=== PATIENT | female | born 1975 | race American Indian/Alaskan Native ===

== ENCOUNTER 2021-01-23 07:15 | Outpatient (CLI) | payer BC | END 2021-01-23 07:16 | disposition home or self-care (01) | LOC: MAMMO 07:15 | PROVIDERS: ATTEND Obstetrics & Gynecology | DX: Z12.31 Encounter for screening mammogram for malignant neoplasm of breast (principal) | CPT/HCPCS: 77067 ==

== ENCOUNTER 2021-03-07 10:52 | Outpatient (CLI) | payer BC ==
--- NOTE | 2021-03-07 15:09 | Mammography Report ---
RIGHT DIGITAL DIAGNOSTIC MAMMOGRAM WITH CAD CONVENTIONAL, 03/07/2021 RIGHT LIMITED BREAST ULTRASOUND CLINICAL INFORMATION / INDICATION: Abnormal screening mammogram TECHNIQUE: Digital right mammographic imaging was performed. Spot compression views were obtained. Li mited ultrasound was performed. This examination was interpreted with the benefit of Computer-Aided D etection (CAD) analysis. COMPARISON: Screening mammography 01/23/2021, 07/06/2018, bilateral breast ultrasound 06/14/2015 FINDINGS: Breast Density: The breasts are heterogeneously dense, which may obscure small masses. MAMMOGRAPHIC FINDINGS: The density of interest on recent screening mammogram improves with spot compr ession views without a discrete lesion seen. ULTRASOUND FINDINGS: Targeted ultrasound evaluation was performed of the area of interest. Examinatio n of the general area of interest was performed. No large density is seen which would correspond to t he area of concern on screening mammogram recently. 3. Minimal probably benign lesions are noted. In the 8:00 position, 2 cm from the nipple, a 7 mm mini nydia complicated cyst is seen. In the 9:00 position, 2 cm from the nipple, a small benign-appearing wider than tall nodule is seen without shadowing or vascularity measuring under 7 mm. In the 10:00 po sition in the retroareolar region, a 5 mm complicated cyst is seen. IMPRESSION: Area of concern improves mammographically and no corresponding sonographic abnormality is noted. Only minimal probably benign lesions are seen sonographically. Follow up recommendation: Follow-up right breast ultrasound and right mammogram in 6 months BI-RADS Category 3: Probably Benign. Followup in 6 months. A "normal" or negative report should not discourage follow up or biopsy of a clinically significant f inding. A written summary of these findings will be mailed to the patient. The patient will be entered into a mammography reporting system which will generate a reminder letter for the patient's next appointmen t at the appropriate interval. According to the [employer], yearly mammograms are recommended starting at age 40 and continuing as long as a woman is in good health. Breast MRI is recommended for women with an bisi roximately 20-25% or greater lifetime risk of breast cancer, including women with a strong family his tory of breast or ovarian cancer and women who have been treated for Hodgkin's disease. Signer Name: Jose Thornton MD Signed: 03/07/2021 3:04 PM Workstation Name: [id number]
== END 2021-03-07 10:53 | disposition home or self-care (01) ==
LOC: MAMMO 10:52
PROVIDERS: ATTEND Obstetrics & Gynecology
DX: N60.01 Solitary cyst of right breast (principal)

== ENCOUNTER 2021-03-20 07:03 | Observation (INO) | payer BC ==
--- NOTE | 2021-03-14 09:55 | Anesthesia Consultation ---
Anesthesia Consult and Med Hx Date of service: 03/20/21 - Airway Anesthetic Teeth Evaluation: Good ROM Head & Neck: Adequate Mental/Hyoid Distance: Adequate Mallampati Class: Class II Intubation Access Assessment: Probably Good - Pulmonary Exam CTA: Yes - Pre-Operative Health Status ASA Pre-Surgery Classification: ASA1 Proposed Anesthetic Plan: General Nerve Block: TAP - Pulmonary Hx Smoking: No Hx Respiratory Symptoms: No - Cardiovascular System Hx Hypertension: No - Central Nervous System CVA: No - Endocrine Hx Renal Disease: No Hx Liver Disease: No Hx Insulin Dependent Diabetes: No Hx Non-Insulin Dependent Diabetes: No Hx Thyroid Disease: No - Other Systems Hx Obesity: No - Additional Comments Anesthesia Medical History Comments: No prior GA. No FHx anesthetic complications.
[2021-03-14 10:11] LABS: Basophils # (Auto) 0.1 K/mm3 (0.0-0.1); Basophils % (Auto) 0.9 % (0.0-1.8); Eosinophils # (Auto) 0.1 K/mm3 (0.0-0.4); Eosinophils % (Auto) 0.9 % (0.0-4.3); Hematocrit 27.7 % (30.3-42.9); Hemoglobin 8.5 gm/dl (10.1-14.3); Lymphocytes # (Auto) 1.3 K/mm3 (1.2-5.4); Lymphocytes % (Auto) 20.8 % (13.4-35.0); Mean Corpuscular HGB Conc 31 % (30-34); Mean Corpuscular Volume 73 fl (79-97); Monocytes # (Auto) 0.5 K/mm3 (0.0-0.8); Platelet Count 270 K/mm3 (140-440); Red Blood Count 3.82 M/mm3 (3.65-5.03)
[2021-03-14 10:31] LABS: Red Cell Distribution Width 23.7 % (13.2-15.2)
--- NOTE | 2021-03-19 18:50 | History and Physical Report ---
History of Present Illness Date of examination: 03/09/21 Date of admission: 03/20/2021 Chief complaint: Excessive and frequent menstruation with regular cycle and pelvic pain History of present illness: Pt presents with c/o increasing pelvic pain and heavier menses since 2017. States she has soiled clothing and heavy bleeding and pain make it difficult for her to perform her job duties. She complains of heavy bleeding. Bleeds heavy 7/7days since 2017. Past History : 3 Term Births: 3 Living Children: 3 Para: 3 # 1 Delivery date: 1996 Delivery type: # 2 Delivery type: # 3 Delivery type: COOKER SODA History Operations: positive Tubal Ligation Abnormal PAP: negative Infection History HIV Risk Eval: no Personal hx. of genital herpes: yes Hx of STD: HSV Active Medications (reviewed today): DICLOFENAC SODIUM 50 MG ORAL TABLET DELAYED RELEASE (DICLOFENAC SODIUM) 50 mg 3 times daily ZYRTEC ALLERGY TABLET (CETIRIZINE HCL TABS) FLONASE ALLERGY RELIEF 50 MCG/ACT NASAL SUSPENSION (FLUTICASONE PROPIONATE) Current Allergies (reviewed today): No known allergies Past Medical History: Reviewed history from 07/03/2018 and no changes required: Anemia Past Surgical History: Reviewed history from 01/17/2021 and no changes required: positive Tubal Ligation Family History Summary: Reviewed history Last on 05/17/2019 and no changes required:03/19/2021 Other Family Member - Has No Family History of Uterine Cancer - Entered On: 07/21/2018 Other Family Member - Has No Family History of Small Bowel Cancer - Entered On: 07/21/2018 Other Family Member - Has No Family History of Stomach Cancer - Entered On: 07/21/2018 Other Family Member - Has No Family History of Pancreatic Cancer - Entered On: 07/21/2018 Other Family Member - Has No Family History of Ovarvian Cancer - Entered On: 07/21/2018 Other Family Member - Has No Family History of Kidney/Urinary Tract Cancer - Entered On: 07/21/2018 Other Family Member - Has No Family History of Spontaneous DVT-PE - Entered On: 07/21/2018 Other Family Member - Has No Family History of Colon Cancer - Entered On: 07/21/2018 Other Family Member - Has No Family History of Brain Cancer - Entered On: 07/21/2018 Other Family Member - Has No Family History of Biliary Tract Cancer - Entered On: 07/21/2018 Aunt - Has Family History Breast Cancer - maternal - Entered On: 03/09/2021 Social History: Reviewed history from 07/03/2018 and no changes required: Patient is single Smoking History: Patient has never smoked. Risk Factors: Smoked Tobacco Use: Never smoker Drug use: no HIV high-risk behavior: no Alcohol use: yes Drinks per day: social Exercise: yes Seatbelt use: 100 % Mammogram History: Date of Last Mammogram: 03/07/2021 Results: Probably Benign Previous Tobacco Use: Signed On - 02/07/2021 Smoked Tobacco Use: Never smoker Smokeless Tobacco Use: Never Passive smoke exposure: no Drug use: no HIV high-risk behavior: no Caffeine use: <1 drinks per day Previous Alcohol Use: Signed On - 02/07/2021 Alcohol use: yes Type: occ Drinks per day: 1 Exercise: yes Times per week: 6 Type of Exercise: walking Seatbelt use: 100 % PAP Smear History: Date of Last PAP Smear: 01/17/2021 NILM +HPV Mammogram History: Date of Last Mammogram: 03/07/2021 Results: Probably Benign, needs repeat in 6months Physical Exam Appearance: well developed, well nourished, no acute distress Other Exams Lungs: no rales, rhonchi, or wheezes Heart: S1, S2, no murmur, rub, or gallop Genitourinary Exam Uterus: deferred for EUA Impression & Recommendations: Problem # 1: Excessive and frequent menstruation with regular cycle (ICD-626.2) ([id number]) Diagnosis explained to patient . Discussed with patient various medical, surgical and radiological therapies common for treatment including, but not limited to, hysterectomy and ablation. Discussed risks and benefits of laparotomy, laparoscopy, vaginal and robotic assisted approaches for hysterectomies. Patient desires definitive treatment in the form of robot assisted laparoscopic total hysterectomy. The risks and alternatives for this surgery were reviewed with the patient. She was informed of the risks of the surgery including, but not limited to, pain, infection, bleeding possibly heavy enough to require a blood transfusion with associated risks of infections (hepatitis and HIV) and transfusion reactions, possible damage to bowel, bladder or ureter(s) and surrounding organs. . Patient understands that this surgery will make her sterile. Indications to abort a robotic/laparoscopic procedure and perform an open procedure were explained. Patient understands if her ovaries are removed she will become menopausal. She desires ovarian conservation. She was informed she may require surgery later to have her ovaries removed for a benign or malignant condition. Patient advised the small risks of spreading of malignancy if morcellation is required during the surgery patient understands and approves performing if necessary. Questions answered. Consent reviewed and signed The patient was instructed/informed the following: The normal length of hospital stay for this procedure. Nothing to eat or drink after midnight the evening prior to surgery.. Pre-op instruction sheets given. Wound care instructions given. Problem # 2: Pelvic and perineal pain (ICD-789.00) ([id number]) It was extensively explained to her that her pain may persist, recur or change in nature due to the difficulty with determining the exact etiology(ies) of chronic pelvic pain or development of adhesions. She declined other treatment options at this time. Medications and Allergies Allergies Allergy/AdvReac Type Severity Reaction Status Date / Time No Known Allergies Allergy Unverified 03/13/21 17:04 Home Medications Medication Instructions Recorded Confirmed Last Taken Type Cetirizine HCl [ZyrTEC 10mg cap] 10 mg PO DAILY 03/13/21 03/13/21 Unknown Hist ory Diclofenac Sodium 50 mg PO BID PRN 03/13/21 03/13/21 Unknown History Fluticasone [Flonase] 2 spray NS QDAY 03/13/21 03/13/21 Unknown History Active Meds: Active Medications Acetaminophen (Acetaminophen 500 Mg Tab) 1,000 mg PO PREOP NITESH Stop: 03/20/21 20:00 Celecoxib (Celecoxib 200 Mg Cap) 200 mg PO PREOP NR Stop: 03/20/21 20:00 Fentanyl (Fentanyl 100 Mcg/2 Ml Inj) 100 mcg IV ONCE PRN PRN Reason: sedation for nerve block Stop: 03/20/21 20:00 Gabapentin (Gabapentin 300 Mg Cap) 300 mg PO PREOP NR Stop: 03/20/21 20:00 Lactated Ringer's (Lactated Ringers) 1,000 mls @ 100 mls/hr IV DIRECT NITESH Stop: 03/20/21 23:59 Cefazolin Sodium (Ancef/Sterile Water 2 Gm/20 Ml) 2 gm in 20 mls @ 80 mls/hr IV PREOP NR; Protocol Midazolam HCl (Midazolam 2 Mg/2 Ml Inj) 2 mg IV PREOP NR Stop: 03/20/21 20:00 Scopolamine (Scopolamine Transdermal Patch 72 Hr) 1 each TD PREOP NR Stop: 03/20/21 23:00 Exam Vital Signs Temp Pulse Resp BP Pulse Ox 98.3 F 71 18 125/72 100 03/14/21 09:25 03/14/21 09:25 03/14/21 09:25 03/14/21 09:25 03/14/21 09:25 Results - Labs 03/14/21 09:30 Assessment and Plan - Patient Problems (1) Excessive and frequent menstruation with regular cycle Status: Chronic (2) Pelvic and perineal pain Status: Chronic (3) Anemia Status: Chronic Qualifiers: Iron deficiency anemia type: chronic blood loss
[~2021-03-20 07:03] MED LIST: ACETAMINOPHEN 500 MG TAB PO SCH; CELECOXIB 200 MG CAP PO NR; GABAPENTIN 300 MG CAP PO NR; LACTATED RINGERS 1,000 ML IV SCH; MIDAZOLAM 2 MG/2 ML INJ IV NR; SCOPOLAMINE TRANSDERMAL PATCH 72 HR TD NR; ceFAZolin/Water 2 GM/20 ML 2 GM/20 ML SYRINGE IV NR; fentaNYL 100 MCG/2 ML INJ IV PRN
[2021-03-20] MEDS ORDERED: HYDROmorphone 1 MG/1 ML INJ IV PRN (08:19)
[2021-03-20] MEDS ORDERED: ONDANSETRON 4 MG/2 ML INJ IV PRN ×2 (08:19→14:57)
--- NOTE | 2021-03-20 08:19 | Anesthesia Day of Surgery ---
Anesthesia Day of Surgery - Day of Surgery Patient Examined: Yes Patient H&P Reviewed: Yes Patient is NPO: Yes
[2021-03-20] MEDS ORDERED: BUPIVACAINE-EPINEPHRINE/PF 0.25%-1:200,000 (30 ML) VIAL INFILTRATI ONE (08:22)
[2021-03-20] MEDS ORDERED: dexAMETHasone 4 MG/ML VIAL ONE (08:22)
[2021-03-20] MEDS ORDERED: ROCURONIUM 50 MG/5 ML INJ IV ONE (09:09)
[2021-03-20] MEDS ORDERED: propofoL 200 MG/20 ML VIAL IV ONE (09:10)
[2021-03-20] MEDS ORDERED: HYDROmorphone 1 MG/1 ML INJ ONE (09:10)
[2021-03-20] MEDS ORDERED: fentaNYL 100 MCG/2 ML INJ ONE (09:10)
[2021-03-20] MEDS ORDERED: NEOMY 40 MG/POLYMYXIN B 200,000 UNITS/ML (GU) AMPULE IR ONE ×2 (10:43→12:05)
[2021-03-20] MEDS ORDERED: METHYLENE BLUE 50 MG/10 ML AMP ONE (10:43)
[2021-03-20] MEDS ORDERED: SODIUM CHLORIDE 0.9% IRRIG SOLN 2000 ML IR ONE (12:05)
[2021-03-20] MEDS ORDERED: NEOSTIGMINE 10MG/10 ML INJ MDV ONE (12:31)
[2021-03-20] MEDS ORDERED: KETOROLAC 30 MG/1 ML INJ ONE (12:32)
[2021-03-20] MEDS ORDERED: GLYCOPYRROLATE 0.4 MG/2 ML INJ ONE (12:32)
--- NOTE | 2021-03-20 13:20 | Post Operative Note ---
Pre-op diagnosis: Menorrhagia, pelvic pain, anemia Post-op diagnosis: same (endometriosis) Procedure: RALTHm (B) salpingectomy Anesthesia: GETA Surgeon: JESSIE Mandel CSA) Estimated blood loss: 50-100ml Pathology: list (uterus and (B) fallopian tubes) Specimen disposition: to lab Condition: stable Disposition: PACU
[2021-03-20] MEDS: HYDROmorphone 1 MG/1 ML INJ IV PRN ×3 (13:25→14:01)
--- NOTE | 2021-03-20 13:25 | Operative Report ---
Operative Report Operative Report: Date: 03/20/2021 Preoperative diagnosis: 1. Menorrhagia 2. Pelvic pain 3. Body mass index of 28.7 kg/m Postoperative diagnosis: 1. Menorrhagia 2. Pelvic pain 3. Body mass index of 28.7 kg/m 4. Endometriosis Procedure: 1. Robotic-assisted laparoscopic total hysterectomy with bilateral salpingectomy Surgeon: Mariah Walls MD [employer] Worker: Cindy Mandel CSA Anesthesiologist: Dr. Guan Anesthesia: General endotracheal anesthesia EBL: Approximately 50 mL Findings: EUA: Uterus palpated to approximately 8 weeks. Uterus was sounded to 8 cm. Grossly normal tubes and ovaries. Endometrial implants noted on the right posterior sidewall directly above the ureter. Procedure: Patient was taken to the OR and placed in the supine position. General anesthesia was induced and an oral gastric tube was placed. Her neck and head were placed on foam support. Foam eye protection with goggles were secured in place. Then foam face protection was placed and secured. Foam shoulder pads were then positioned on her shoulders for Trendelenburg posit ioning. She was then placed in dorsolithotomy position. Exam under anesthesia as above. The abdomen and vagina were then prepped and draped in the usual sterile fashion. Timeout was performed. A Trujillo catheter was inserted into the bladder with drainage of clear yellow urine. The operative speculum was introduced into the vagina and the anterior lip of the cervix was grasped with single-toothed tenaculum. The uterus was sounded to 8 cm. The cervix was progressively dilated to allow the large V care uterine manipulator. The bulb of the manipulator was inflated and the speculum and tenaculum were removed. The cup of the manipulator was placed around the cervix and the blue occluder of the manipulator was properly positioned in the vagina and secured. A laparotomy sponge that was saturated with a solution of polymyxin and saline was placed in the vagina to ensure pneumoperitoneum. Sterile gloves were placed and attention was turned to the abdomen. A 10 mm midline vertical supraumbilical incision was made approximately 10 cm superior to the elevated fundus of the uterus. A 10-12 mm trocar with the laparoscope and camera attached was introduced through this incision under direct visualization. The abdomen was insufflated. No obvious bowel, bladder, ureteral, or major vascular injury was noted. The patient was then placed in steep Trendelenburg position and the following trochars were placed under direct visualization: 8 mm robotic trochars were placed through incisions made in the bilateral midclavicular lower abdominal region approximately 10 cm lateral to the midline incision, and a 5 mm trocar was placed through an incision made in the right lower lateral pelvis. The 10 mm laparoscope was then replaced by a 5 mm laparoscope that was placed through the 5 millimeter lateral trocar. The 12 mm trocar was then removed and the Rolando Harman fascial closure device was placed through the incision and a 0 Vicryl was placed through the fascia. Once the suture was secured the 12 mm trocar was reintroduced. Once the trochars were in the appropriate positions, the da Daxa robot system was engaged. The EndoShears and bipolar device was placed through the 8 mm trochars and positioned then attention was turned to the console. The uterus was elevated and bilateral salpingectomy was performed. Each tube was removed through the 5 mm trocar and sent to pathology in separate containers. Then the utero-ovarian ligaments were clamped. cauterized and incised bilaterally using 30 W of energy. Then the round ligaments were clamped, cauterized and incised bilaterally. The anterior leaf of the broad ligament was elevated and with careful blunt and sharp dissection the bladder flap was created and dissected away from the lower uterine segment and cervix. The posterior leaf of the broad ligament was dissected away from the uterine vessels. The cup of the uterine manipulator was palpated both anteriorly and posteriorly. The bladder was further dissected away from the lower uterine segment. The uterine vessels were then clamped and cauterized bilaterally. Blanching of the uterus was then noted. Attention was again turned to the anterior lower uterine segment and the bladder was confirmed to be away from the operative field. Then attention was turned again to the posterior where the cup of the manipulator was palpated and a colpotomy was performed down to the cup. The incision was extended in the lateral position to the uterine vessels that were again clamped and cauterized and incised. Continuing along the cup of the manipulator in a circumferential manner the colpotomy was completed. The uterus and cervix were then removed through the vaginal incision. The pelvis was irrigated with warm normal saline. A moist laparotomy sponge was placed in the vagina to maintain pneumoperitoneum. The vagina cuff was reapproximated using V LOC 180 suture. Then a J stitch was performed to secure the suture. Again the pelvis was copiously irrigated with polymixin in warm normal saline. The laparotomy sponge was removed from the vagina. No obvious evidence of bowel, bladder, ureteral, or major vascular injury was noted. Once hemostasis was noted, Radha was applied to the operative field to ensure hemostasis. Then the instruments were removed, the robot was disengaged. The 12 mm trocar was removed and the fascia was ligated with the 0 Vicryl suture that was placed at the beginning of the procedure. The patient was taken out of Trendelenburg position, the abdomen was desufflated, the remaining trochars were removed. Incisions were reapproximated using 4-0 Monocryl in a subcuticular manner. Surgiseal was placed over the other incisions. The vagina was then inspected, the cuff was palpated to be intact and no bleeding was noted and clear yellow urine was draining into the Trujillo bag from the bladder at the end of the procedure. Counts were correct 3. Patient was taken to recovery room in stable condition.
[2021-03-20] MEDS ORDERED: METOCLOPRAMIDE 10 MG/2 ML INJ IV PRN (14:57)
[2021-03-20] MEDS ORDERED: ONDANSETRON 4 MG ODT TAB PO PRN (14:57)
[2021-03-20] MEDS ORDERED: traMADol 50 MG TAB PO PRN (14:57)
[2021-03-20] MEDS ORDERED: METOCLOPRAMIDE 10 MG TAB PO PRN (14:57)
[2021-03-20] MEDS: ACETAMINOPHEN 500 MG TAB PO SCH ×2 (15:45→22:00)
--- NOTE | 2021-03-20 17:36 | Progress Note ---
Assessment and Plan Good UO. Operative findings and procedures explained, plan of care and pain management discussed. No question. She voiced understanding. - Patient Problems (1) History of robot-assisted laparoscopic hysterectomy Current Visit: Yes Status: Acute (2) Anemia Current Visit: No Status: Chronic Qualifiers: Iron deficiency anemia type: chronic blood loss (3) Excessive and frequent menstruation with regular cycle Current Visit: No Status: Resolved (4) Pelvic and perineal pain Current Visit: No Status: Resolved Subjective - Subjective Date of service: 03/20/21 Principal diagnosis: DOS S/P RALTH with (B) salpingectomy Interval history: Resting in bed, c/o pain and nausea Patient reports: pain well controlled Objective - Vital Signs Latest vital signs: Vital Signs Temp Pulse Resp BP BP Pulse Ox 03/20/21 17:27 100 03/20/21 16:06 97.3 F L 75 18 122/75 93 03/20/21 14:45 97.7 F 72 18 134/79 96 03/20/21 14:35 97.7 F 75 18 134/79 96 03/20/21 14:30 74 12 127/71 97 03/20/21 14:15 66 12 118/73 97 03/20/21 14:00 69 12 131/90 100 03/20/21 13:45 74 14 131/79 100 03/20/21 13:30 72 14 131/78 100 03/20/21 13:25 15 03/20/21 13:15 68 12 132/79 100 03/20/21 13:10 69 10 L 124/69 100 03/20/21 13:03 97.2 F L 65 10 L 129/69 100 03/20/21 09:35 14 03/20/21 09:05 16 03/20/21 08:47 86 11 L 123/67 100 03/20/21 08:42 73 10 L 109/69 100 03/20/21 08:37 75 23 115/74 100 03/20/21 08:35 16 03/20/21 08:32 72 20 123/82 100 03/20/21 08:15 98.7 F 78 16 126/71 100 03/20/21 08:05 18 03/20/21 08:00 98.7 F 78 16 126/71 100 Intake and Output 03/20/21 03/20/21 03/20/21 06:59 14:59 22:59 Intake Total 1250 Output Total 550 Balance 700 Intake: IV 1250 Output: Urine 550 Other: Voiding Method Toilet - Exam Cardiovascular: Present: Regular rate Lungs: Present: Clear to auscultation, Normal air movement Abdomen: Present: soft, normal bowel sounds. Absent: distention Extremities: Present: normal (NT) Incision: Present: normal, dry, intact
--- NOTE | 2021-03-20 17:36 | Post Anesthesia Evaluation ---
- Post Anesthesia Evaluation Patient Participated: Yes Airway Patent: Yes Stable Respiratory Function: Yes Nausea/Vomiting: No Temp > 96.8F: Yes Pain Manageable: Yes Adequeate Hydration: Yes Anesthesia Complications: No Block Receding Appropriately: Yes Patient on Ventilator: No
[2021-03-20] MEDS: KETOROLAC 30 MG/1 ML INJ IV SCH ×2 (18:06→23:55)
[2021-03-20] MEDS: ceFAZolin/NS 1 GM/50 ML 1 GM/50 ML BAG IV SCH (19:46)
[2021-03-20] MEDS: LACTATED RINGERS 1,000 ML IV SCH (19:52)
[2021-03-21] MEDS: ceFAZolin/NS 1 GM/50 ML 1 GM/50 ML BAG IV SCH (04:01)
[2021-03-21] MEDS: ACETAMINOPHEN 500 MG TAB PO SCH (04:01)
[2021-03-21] MEDS: LACTATED RINGERS 1,000 ML IV SCH (04:13)
[2021-03-21] MEDS: KETOROLAC 30 MG/1 ML INJ IV SCH ×2 (06:52→15:20)
[2021-03-21 07:32] LABS: Hematocrit 25.5 % (30.3-42.9); Hemoglobin 7.7 gm/dl (10.1-14.3)
--- NOTE | 2021-03-21 09:49 | Discharge Summary ---
Providers - Providers Date of Admission: 03/20/21 13:07 Date of discharge: 03/21/21 Attending physician: JESSIE MARTINEZ Primary care physician: [facility] DEPARTMENT CHAIR Hospitalization Condition: Good Procedures: RALTH with (B) salpingectomy Hospital course: Uncomplicated Disposition: TO HOME OR SELFCARE Final Discharge Diagnosis (Prints w/discharge instructions): RALTH with (B) salpingectomy - Discharge Diagnoses (1) History of robot-assisted laparoscopic hysterectomy Status: Acute (2) Anemia Status: Chronic Qualifiers: Iron deficiency anemia type: chronic blood loss (3) Excessive and frequent menstruation with regular cycle Status: Resolved (4) Pelvic and perineal pain Status: Resolved Core Measure Documentation - Palliative Care Palliative Care/ Comfort Measures: Not Applicable - Core Measures Any of the following diagnoses?: none Exam - Constitutional Vitals: Temp Pulse Resp BP Pulse Ox 97.5 F L 76 20 122/76 96 03/21/21 07:50 03/21/21 07:50 03/21/21 07:50 03/21/21 07:50 03/21/21 07:50 General appearance: Present: no acute distress - Neck Neck: Present: supple - Respiratory Respiratory effort: normal Respiratory: bilateral: CTA - Cardiovascular Rhythm: regular - Extremities Extremities: no ischemia, No edema - Abdominal General gastrointestinal: Present: soft, non-tender, non-distended, normal bowel sounds Female genitourinary: Present: deferred - Integumentary Integumentary: Present: clear, warm, dry (Incisions c/d/i) - Psychiatric Psychiatric: appropriate mood/affect, intact judgment & insight, memory intact, cooperative - Neurologic Neurologic: CNII-XII intact Plan Activity: other (No sex. No driving. Ambulate ~1mile on your property a day. Void every hour to prevent pressure from occurring on your vagina. Use your incentive spirometer every hour while awake. ) Weight Bearing Status: Full Weight Bearing Diet: regular (Eat small meals frequently. Avoid high salt, spicy and fatty foods. Drink ~65 oz water a day.) Special Instructions: no heavy lifting (Greater than 15 lbs) Follow up with: PRIMARY CARE, [Primary Care Provider] - 7 Days Prescriptions: Docusate Sodium [Colace] 100 mg PO DAILY #30 capsule Ferrous Sulfate [Ferrous Sulfate 324 MG] 324 mg PO BID #90 tablet.dr Ibuprofen [Motrin 800 MG tab] 800 mg PO Q8H PRN #30 tablet PRN Reason: Pain, Moderate (4-6) oxyCODONE /ACETAMINOPHEN [Percocet 5/325 mg] 1 - 2 tab PO Q6H PRN #14 tablet PRN Reason: Pain, Moderate (4-6)
[2021-03-21] MEDS ORDERED: PANTOPRAZOLE 40 MG INJ IV SCH (10:00)
[2021-03-21] MEDS ORDERED: IBUPROFEN 800 MG TAB PO PRN (13:07)
[2021-03-21] MEDS ORDERED: oxyCODONE /ACETAMINOPHEN 5-325MG TAB PO PRN (13:07)
[2021-03-21] MEDS ORDERED: KETOROLAC 30 MG/1 ML INJ ONE (15:14)
--- NOTE | 2021-03-21 17:41 | Consultation ---
History of Present Illness - Reason for Consult Consult date: 03/21/21 Blurred vision Requesting physician: JESSIE MARTINEZ - History of Present Illness 46 YO Female with Anemia, Menorrhagia admitted for robotic laproscopic hysterectomy. Consult placed for blurred vision. Patient seen and evaluated in her room. Patient states that she noticed that she had blurred vision this morning while attempting to read information on her telephone. Patient states that she was unable to read information on her cellular phone. Patient denies fever, chills, chest pain, palpitations, headache, loss of vision, trauma, rhinorrhea, dizziness, vertigo, or known ill contacts. Patient knowledges that she is farsighted and wears glasses for reading. Patient reports that she does not have her reading glasses available at this time. No reported nursing events. Past History Past Medical History: anemia, other (See HPI) Past Surgical History: Other (Laproscopic hysterectomy) Social history: single. denies: smoking, alcohol abuse, prescription drug abuse Family history: no significant family history Medications and Allergies Allergies Allergy/AdvReac Type Severity Reaction Status Date / Time No Known Allergies Allergy Unverified 03/13/21 17:04 Home Medications Medication Instructions Recorded Confirmed Last Taken Type Cetirizine HCl [ZyrTEC 10mg cap] 10 mg PO DAILY 03/13/21 03/20/21 03/13/21 09:00 History Fluticasone [Flonase] 2 spray NS QDAY 03/13/21 03/20/21 03/13/21 09:00 History Docusate Sodium [Colace] 100 mg PO DAILY #30 capsule 03/21/21 Unknown Rx Ferrous Sulfate [Ferrous Sulfate 324 mg PO BID #90 tablet. 03/21/21 Unknown Rx 324 MG] Ibuprofen [Motrin 800 MG tab] 800 mg PO Q8H PRN #30 tablet 03/21/21 Unknown Rx oxyCODONE /ACETAMINOPHEN [Percocet 1 - 2 tab PO Q6H PRN #14 tablet 03/21/21 Unknown Rx 5/325 mg] Active Meds: Active Medications Lactated Ringer's (Lactated Ringers) 1,000 mls @ 125 mls/hr IV DIRECT NITESH Last Admin: 03/21/21 04:13 Dose: 125 mls/hr Documented by: Ibuprofen (Ibuprofen 800 Mg Tab) 800 mg PO Q8H PRN PRN Reason: Pain, Moderate (4-6) Metoclopramide HCl (Metoclopramide 10 Mg/2 Ml Inj) 10 mg IV Q6H PRN PRN Reason: Nausea And Vomiting Metoclopramide HCl (Metoclopramide 10 Mg Tab) 10 mg PO Q6H PRN PRN Reason: Nausea And Vomiting Ondansetron HCl (Ondansetron 4 Mg/2 Ml Inj) 4 mg IV Q8H PRN PRN Reason: N/V unrelieved by Princess Last Admin: 03/20/21 17:40 Dose: 4 mg Documented by: Ondansetron HCl (Ondansetron 4 Mg Odt Tab) 4 mg PO Q8H PRN PRN Reason: Nausea And Vomiting Oxycodone/Acetaminophen (Oxycodone /Acetaminophen 5-325mg Tab) 2 tab PO Q6H PRN PRN Reason: Pain, Moderate (4-6) Pantoprazole Sodium (Pantoprazole 40 Mg Inj) 40 mg IV QDAY NITESH Tramadol HCl (Tramadol 50 Mg Tab) 50 mg PO Q6H PRN PRN Reason: Pain, Mild(1-3) Review of Systems Constitutional: no weight loss, no weight gain, no chills, no sweats Ears, nose, mouth and throat: no ear pain, no ear discharge, no nose pain, no nasal discharge Breasts: no change in shape, no swelling, no mass Cardiovascular: no chest pain, no syncope Respiratory: no cough, no excessive sputum, no hemoptysis, no shortness of breath Gastrointestinal: no abdominal pain, no vomiting, no diarrhea, no change in bowel habits Genitourinary Female: no pelvic pain, no flank pain, no dysuria, no urinary aubrey quency, no urgency Rectal: no pain, no incontinence, no bleeding Musculoskeletal: no neck stiffness, no neck pain, no arm numbness/tingling, no low back pain, no shooting leg pain, no leg numbness/tingling Integumentary: no rash, no pruritis, no redness, no sores, no wounds Neurological: other (blurred vision), no head injury, no transient paralysis, no weakness, no numbness Psychiatric: no anxiety, no sleep disturbances, no insomnia, no hypersomnia, no change in appetite, no suicidal ideation Endocrine: no cold intolerance, no heat intolerance, no polyphagia, no excessive thirst, no polydipsia, no polyuria, no excessive sweating Hematologic/Lymphatic: no easy bruising, no easy bleeding, no lymphadenopathy, no lymphedema Allergic/Immunologic: no urticaria, no wheezing, no persistent infections, no anaphylaxis, no angioedema Exam - Constitutional Vitals: Temp Pulse Resp BP Pulse Ox 98.0 F 82 18 114/65 100 03/21/21 16:03 03/21/21 16:03 03/21/21 16:03 03/21/21 16:03 03/21/21 16:03 Results - Labs CBC & Chem 7: 03/21/21 07:16 Labs: Abnormal lab results 03/21/21 Range/Units 07:16 Hgb 7.7 L (10.1-14.3) gm/dl Hct 25.5 L (30.3-42.9) % Assessment and Plan - Patient Problems (1) Blurred vision, bilateral Current Visit: Yes Status: Acute Plan to address problem: Neuro check, CT scan head. Recommend repeat vision check while patient is wearing her reading glasses. Recommend outpatient eye exam.
--- NOTE | 2021-03-22 00:04 | Cat Scan Report ---
CT head/brain wo con INDICATION / CLINICAL INFORMATION: 46 years Female; Blurred vision. TECHNIQUE: Routine CT head without contrast. All CT scans at this location are performed using CT dos e reduction for ALARA by means of automated exposure control. COMPARISON: None. FINDINGS: BRAIN / INTRACRANIAL CONTENTS: No acute hemorrhage, mass effect, midline shift, hydrocephalus, or acu te, large territorial infarct. No signs of significant atrophy or chronic infarct. No significant whi te matter abnormality seen. CRANIOCERVICAL JUNCTION: No significant abnormality. ORBITS: No significant abnormality of visualized orbits. SINUSES / MASTOIDS: Visualized paranasal sinuses and mastoid air cells are essentially clear. ADDITIONAL FINDINGS: None. IMPRESSION: 1. No focal mass, hemorrhage, hydrocephalus, or acute, large territorial infarct. Signer Name: Shoaib Flores MD, III Signed: 03/22/2021 12:00 AM Workstation Name: [id number]
[2021-03-22 08:26] VITALS: BP 110/60
== END 2021-03-21 10:30 | disposition home or self-care (01) ==
LOC: OR 07:03 → OB 13:07
PROVIDERS: ADMIT Obstetrics & Gynecology; ATTEND Obstetrics & Gynecology
DX: N92.0 Excessive and frequent menstruation with regular cycle (principal); Z20.822 Contact with and (suspected) exposure to COVID-19; D64.9 Anemia, unspecified; H53.8 Other visual disturbances; R10.2 Pelvic and perineal pain; R51.9 Headache, unspecified; Z90.710 Acquired absence of both cervix and uterus; Z98.51 Tubal ligation status
CPT/HCPCS: 36415; 58571; 64450; 70450; 81025; 85014; 85018; 85025; 86850; 86900; 86901; 88307; 96365; 96366; 96375; 96376; A4217; G0378; J0690; J1100; J1170; J1885; J2250; J2405; J2704; J2710; J3010; J7120; Q9968; S2900; U0003; 88302; C9113

== ENCOUNTER 2021-03-29 16:47 | Inpatient (IN) | payer BC ==
[2021-03-29] MEDS ORDERED: SODIUM CHLORIDE 0.9% 1000 ML IV SOLN IV ONE (17:29)
--- NOTE | 2021-03-29 17:29 | Event Note ---
ED Screening Note ED Screening Note: hysterectomy on 03/20/2021 began having lower abd pain and vomiting today 4 times of vomiting no diarrhea yesterday normal BM no vaginal bleeding PMHX none has been taking ibuprofen 800mg no allergies to meds abdominal surgical hx tubal ligation This initial assessment/diagnostic orders/clinical plan/treatment(s) is/are subject to change based on patients health status, clinical progression and re- assessment by fellow clinical providers in the ED. Further treatment and workup at subsequent clinical providers discretion. Patient/guardian urged not to elope from the ED as their condition may be serious if not clinically assessed and managed. Initial orders include: sepsis protocol initiated
[2021-03-29 17:47] LABS: Hematocrit 32.6 % (30.3-42.9); Hemoglobin 10.2 gm/dl (10.1-14.3); Mean Corpuscular HGB Conc 31 % (30-34); Mean Corpuscular Volume 75 fl (79-97); Platelet Count 428 K/mm3 (140-440); Red Blood Count 4.34 M/mm3 (3.65-5.03)
[2021-03-29 17:48] LABS: Red Cell Distribution Width 23.7 % (13.2-15.2)
[2021-03-29 18:03] LABS: Alanine Aminotransferase 57 units/L (7-56); Albumin 3.7 g/dL (3.9-5); BUN/Creatinine Ratio 16; Blood Urea Nitrogen 16 mg/dL (7-17); Calcium 9.1 mg/dL (8.4-10.2); Hemolysis Index 0
[2021-03-29] MEDS ORDERED: PIPERACIL/TAZOBACTA 4.5/NS 100 4.5 GM/100 ML VIAL IV ONE (18:11)
--- NOTE | 2021-03-29 18:16 | Emergency Department Report ---
ED Abdominal Pain HPI - General Chief Complaint: Abdominal Pain Stated Complaint: vomiting PUI?: No Time Seen by Provider: 03/29/21 18:02 Source: patient, family Mode of arrival: Wheelchair Limitations: No Limitations - History of Present Illness Initial Comments: Patient is a 46-year-old female that presents emergency room with complaints of abdominal pain, nausea and vomiting. Patient states that she recently had a transabdominal hysterectomy on March 20, 2020. Patient states she saw her [facility] yesterday and everything checked out as normal. Patient states she did not have any pain until this morning. Patient dates her symptoms started today, this morning. Patient states his symptoms are worsening. States his pain is a 10 out of 10. Patient states the pain is in her lower abdomen. Patient states the pain is better with rest and worse with palpation and movement. Patient denies fever and chills. Patient denies cough. Patient denies chest pain or shortness of breath. Patient denies recent travel. Patient denies recent international travel. Patient denies exposure to the novel coronavirus. Patient denies sick contacts. Patient denies fever and chills. Patient denies cough. Patient denies diarrhea. Patient denies coming in contact with anybody with symptoms of the novel coronavirus. MD Complaint: abdominal pain - Related Data Home Medications Medication Instructions Recorded Confirmed Last Taken Cetirizine HCl [ZyrTEC 10mg cap] 10 mg PO DAILY 03/13/21 03/20/21 03/13/21 09:00 Fluticasone [Flonase] 2 spray NS QDAY 03/13/21 03/20/21 03/13/21 09:00 Previous Rx's Medication Instructions Recorded Last Taken Type Docusate Sodium [Colace] 100 mg PO DAILY #30 capsule 03/21/21 Unknown Rx Ferrous Sulfate [Ferrous Sulfate 324 mg PO BID #90 tablet. 03/21/21 Unknown Rx 324 MG] Ibuprofen [Motrin 800 MG tab] 800 mg PO Q8H PRN #30 tablet 03/21/21 Unknown Rx oxyCODONE /ACETAMINOPHEN [Percocet 1 - 2 tab PO Q6H PRN #14 tablet 03/21/21 Unknown Rx 5/325 mg] Allergies Allergy/AdvReac Type Severity Reaction Status Date / Time No Known Allergies Allergy Verified 03/29/21 17:09 ED Review of Systems ROS: Stated complaint: vomiting Other details as noted in HPI Constitutional: denies: chills, fever Eyes: denies: eye pain, eye discharge, vision change ENT: denies: ear pain, throat pain Respiratory: denies: cough, shortness of breath, wheezing Cardiovascular: denies: chest pain, palpitations Endocrine: no symptoms reported Gastrointestinal: as per HPI, abdominal pain, nausea, vomiting. denies: diarrhea Genitourinary: denies: urgency, dysuria, discharge Musculoskeletal: denies: back pain, joint swelling, arthralgia Skin: denies: rash, lesions Neurological: denies: headache, weakness, paresthesias Psychiatric: denies: anxiety, depression Hematological/Lymphatic: denies: easy bleeding, easy bruising ED Past Medical Hx - Past Medical History Previous Medical History?: Yes Hx Hypertension: No Hx Congestive Heart Failure: No Hx Diabetes: No Hx Liver Disease: No Hx Renal Disease: No Hx Headaches / Migraines: Yes (Migraines) Hx Asthma: No Hx COPD: No - Surgical History Past Surgical History?: Yes Additional Surgical History: Hysterectomy - Family History Family history: no significant - Social History Smoking Status: Never Smoker Substance Use Type: None - Medications Home Medications: Home Medications Medication Instructions Recorded Confirmed Last Taken Type Cetirizine HCl [ZyrTEC 10mg cap] 10 mg PO DAILY 03/13/21 03/20/21 03/13/21 09:00 History Fluticasone [Flonase] 2 spray NS QDAY 03/13/21 03/20/21 03/13/21 09:00 History Docusate Sodium [Colace] 100 mg PO DAILY #30 capsule 03/21/21 Unknown Rx Ferrous Sulfate [Ferrous Sulfate 324 mg PO BID #90 tablet.dr 03/21/21 Unknown Rx 324 MG] Ibuprofen [Motrin 800 MG tab] 800 mg PO Q8H PRN #30 tablet 03/21/21 Unknown Rx oxyCODONE /ACETAMINOPHEN [Percocet 1 - 2 tab PO Q6H PRN #14 tablet 03/21/21 Unknown Rx 5/325 mg] ED Physical Exam - General Limitations: No Limitations General appearance: alert, in no apparent distress - Head Head exam: Present: atraumatic, normocephalic - Eye Eye exam: Present: normal appearance - ENT ENT exam: Present: mucous membranes moist - Neck Neck exam: Present: normal inspection - Respiratory Respiratory exam: Present: normal lung sounds bilaterally. Absent: respiratory distress - Cardiovascular Cardiovascular Exam: Present: regular rate, normal rhythm. Absent: systolic murmur, diastolic murmur, rubs, gallop - GI/Abdominal GI/Abdominal exam: Present: soft, tenderness (Lower abdominal tenderness to palpation.), normal bowel sounds - Extremities Exam Extremities exam: Present: normal inspection - Back Exam Back exam: Present: normal inspection - Neurological Exam Neurological exam: Present: alert, oriented X3 - Psychiatric Psychiatric exam: Present: normal affect, normal mood - Skin Skin exam: Present: warm, dry, intact, normal color. Absent: rash ED Course Vital Signs 03/29/21 03/29/21 03/29/21 17:08 17:09 18:18 Temperature 98.3 F Pulse Rate 111 H 104 H Respiratory 22 26 H Rate Blood Pressure 95/57 Blood Pressure 120/68 [Left] O2 Sat by Pulse 97 100 Oximetry 03/29/21 03/29/21 03/29/21 19:04 19:30 19:46 Temperature Pulse Rate 97 H 100 H Respiratory 25 H 26 H Rate Blood Pressure 106/64 112/63 104/66 Blood Pressure [Left] O2 Sat by Pulse 98 96 97 Oximetry 03/29/21 03/29/21 03/29/21 20:00 21:00 21:30 Temperature Pulse Rate 92 H 93 H 100 H Respiratory 21 23 28 H Rate Blood Pressure 104/66 101/59 105/64 Blood Pressure [Left] O2 Sat by Pulse 98 96 98 Oximetry 03/29/21 03/29/21 03/30/21 21:53 22:30 00:55 Temperature 98.6 F Pulse Rate 100 H 98 H 107 H Respiratory 24 24 20 Rate Blood Pressure 104/56 Blood Pressure 105/64 107/60 [Left] O2 Sat by Pulse 100 97 100 Oximetry - Reevaluation(s) Reevaluation #1: Patient was in triage and found to be hypotensive and tachycardic and the patient was brought immediately to acute care area. Patient had a sepsis protocol initiated in triage. Patient's fluids have been ordered. IV has been started. Patient will be given IV antibiotics. Patient's blood pressure still low and the patient's heart rate is high. 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 03/29/21 18:16 Reevaluation #2: Patient's blood pressure is improved. Patient heart rate has improved. Patient's abdominal pain improving. 03/29/21 19:16 Reevaluation #3: I discussed all results with patient. I discussed plan of care with patient. Patient agrees with plan of care and admission. Patient to be admitted to the hospitalist service. 03/29/21 21:16 - Consultations Consultation #1: I discussed the case with Dr. Arreola. Dr. Arreola has accepted the patient be admitted to mother-baby. Bridge orders placed. 03/29/21 21:32 ED Medical Decision Making - Lab Data Result diagrams: 03/29/21 17:34 03/29/21 17:34 - Radiology Data Radiology results: report reviewed CT OF THE ABDOMEN AND PELVIS WITH INTRAVENOUS CONTRAST INDICATION / CLINICAL INFORMATION: Abdominal pain and sepsis. TECHNIQUE: The patient received 100 cc Omnipaque [address] scans at this location are performed using CT dose reduction for ALARA by means of automated exposure control. COMPARISON: None available. FINDINGS: ABDOMEN: There is minimal perihepatic ascites. There is mild diffuse fatty infiltration of the liver without focal lesion. The gallbladder, bile ducts, pancreas, spleen, adrenal glands and kidneys are normal. There is mild increased density of the peritoneal fat. I see no evidence of bowel obstruction or free air. No adenopathy is identified. There is bibasilar dependent atelectasis. PELVIS: There is a multiloculated cystic mass in the left adnexa measuring approximately 5 cm in greatest dimension. No gas is seen in the collection. There is mild pelvic ascites. There is mild generalized increased density of the peritoneal fat. The uterus and ovaries are not identified. No diverticula are identified. There is no evidence of appendicitis. I do not identify a hernia. No acute osseous abnormality is seen. IMPRESSION: 5 cm multiloculated cystic mass in the left adnexa probably represents an abscess. There is mild ascites and generalized peritoneal edema/inflammation. The cause for the abscess is not seen. - Medical Decision Making Patient is a 46-year-old female who presents emergency room for abdominal pain. Patient had a recent robotic transabdominal hysterectomy done by her local [facility] group. Patient found to be hypotensive and tachycardic. Patient given fluids and early antibiotics. Patient responded well. Patient blood pressure improved. Patient given pain medications. Patient's vital signs improved with treatment. Patient's abdominal pain improved. Patient had labs done which showed an elevated WBC and the rest of the labs are essentially unremarkable. Patient had a CT scan of the abdomen which shows an intra-abdominal abscess. Patient given IV Zosyn. Patient admitted to mother-baby to the patient's [facility] service. Critical care time documented due to the multiple reassessments, prolonged time at the bedside, interpretation of diagnostics and labs. - Differential Diagnosis Intra-abdominal abscess, sepsis, tachycardia, hypotension Critical Care Time: Yes Critical care time in (mins) excluding proc time.: 35 Critical care attestation.: If time is entered above; I have spent that time in minutes in the direct care o f this critically ill patient, excluding procedure time. Critical Care Time: 35 minutes ED Disposition Clinical Impression: Intra-abdominal abscess, Intra-abdominal abscess post-procedure, H/O abdominal surgery, History of robot-assisted laparoscopic hysterectomy Abdominal pain Qualifiers: Abdominal location: generalized Qualified Code(s): R10.84 - Generalized abdominal pain Sepsis Qualifiers: Sepsis type: sepsis due to unspecified organism Sepsis acute organ dysfunction status: without acute organ dysfunction Qualified Code(s): A41.9 - Sepsis, unspecified organism Hypotension Qualifiers: Hypotension type: unspecified hypotension type Qualified Code(s): I95.9 - Hy potension, unspecified Disposition: DC-09 OP ADMIT IP TO THIS HOSP Is pt being admited?: Yes Does the pt Need Aspirin: No Condition: Critical Time of Disposition: 21:32
[2021-03-29] MEDS ORDERED: HYDROmorphone 1 MG/1 ML INJ IV ONE (18:21)
[2021-03-29 18:43] LABS: Total Cells Counted 100
[2021-03-29 18:44] LABS: RBC Morphology Normal
[2021-03-29 18:47] LABS: Anisocytosis 2+; Hypochromasia 1+
--- NOTE | 2021-03-29 19:35 | Cat Scan Report ---
CT OF THE ABDOMEN AND PELVIS WITH INTRAVENOUS CONTRAST INDICATION / CLINICAL INFORMATION: Abdominal pain and sepsis. TECHNIQUE: The patient received 100 cc Omnipaque [address] scans at this location are performed using CT dose reduction for ALARA by means of automated exposure control. COMPARISON: None available. FINDINGS: ABDOMEN: There is minimal perihepatic ascites. There is mild diffuse fatty infiltration of the liver without focal lesion. The gallbladder, bile ducts, pancreas, spleen, adrenal glands and kidneys are n ormal. There is mild increased density of the peritoneal fat. I see no evidence of bowel obstruction or free air. No adenopathy is identified. There is bibasilar dependent atelectasis. PELVIS: There is a multiloculated cystic mass in the left adnexa measuring approximately 5 cm in grea test dimension. No gas is seen in the collection. There is mild pelvic ascites. There is mild general ized increased density of the peritoneal fat. The uterus and ovaries are not identified. No diverticu la are identified. There is no evidence of appendicitis. I do not identify a hernia. No acute osseous abnormality is seen. IMPRESSION: 5 cm multiloculated cystic mass in the left adnexa probably represents an abscess. There is mild ascites and generalized peritoneal edema/inflammation. The cause for the abscess is not seen. Signer Name: Axel Cordero MD Signed: 03/29/2021 7:30 PM Workstation Name: [id number]
[2021-03-29] MEDS ORDERED: SODIUM CHLORIDE 0.9% 1000 ML 1,000 ML ONE (21:15)
[2021-03-29] MEDS ORDERED: SODIUM CHLORIDE 0.9% 1000 ML 1,000 ML IV ONE (21:19)
[2021-03-29] MEDS ORDERED: oxyCODONE /ACETAMINOPHEN 5-325MG TAB PO PRN (21:43)
[2021-03-29] MEDS ORDERED: MAGNESIUM HYDROXIDE (MOM) ORAL LIQD UDC PO PRN (21:43)
[2021-03-29] MEDS ORDERED: ACETAMINOPHEN 325 MG TAB PO PRN (21:43)
[2021-03-30] MEDS ORDERED: GENTAMICIN/NS 120MG/100ML 120 MG/100 ML BAG IV SCH
--- NOTE | 2021-03-30 00:01 | Event Note ---
Date: 03/29/21 Discussed patient condition with Dr. Choe via phone. He states patient is stable enough to admit to mother-baby blood pressure is stable patient feels a lot better after hydration. Will admit patient and start IV antibiotics.
[2021-03-30 00:54] LABS: Bacteria,Urine 1+ /HPF (Negative); Bilirubin,Urine NEG (Negative); Blood,Urine SM (Negative); Color,Urine Yellow (Yellow); Mucus,Urine FEW /HPF; Protein,Urine <15 mg/dL mg/dL (Negative)
[2021-03-30] MEDS: SODIUM CHLORIDE 0.9% 1000 ML 1,000 ML IV SCH ×2 (01:11→14:52)
[2021-03-30] MEDS: HYDROcodone/ACETAMINOPHEN 5-325 MG TAB PO PRN ×3 (01:21→20:12)
[2021-03-30] MEDS: DOCUSATE SODIUM 100 MG CAP PO SCH ×3 (01:24→22:44)
[2021-03-30 06:45] LABS: Basophils # (Auto) 0.1 K/mm3 (0.0-0.1); Basophils % (Auto) 0.4 % (0.0-1.8); Eosinophils % (Auto) 0.2 % (0.0-4.3); Hematocrit 23.5 % (30.3-42.9); Hemoglobin 7.2 gm/dl (10.1-14.3); Lymphocytes % (Auto) 6.2 % (13.4-35.0); Mean Corpuscular HGB Conc 31 % (30-34); Mean Corpuscular Volume 74 fl (79-97); Monocytes # (Auto) 0.6 K/mm3 (0.0-0.8); Monocytes % (Auto) 3.9 % (0.0-7.3); Platelet Count 338 K/mm3 (140-440); Red Blood Count 3.17 M/mm3 (3.65-5.03)
[2021-03-30 06:46] LABS: Red Cell Distribution Width 23.6 % (13.2-15.2)
--- NOTE | 2021-03-30 07:21 | History and Physical Report ---
History of Present Illness Date of examination: 03/30/21 Date of admission: 03/29/21 21:29 History of present illness: This a 46-year-old black female para 3-0-0-3 who is status post robotic assisted total hysterectomy and bilateral salpingectomy on 03/20/2021. Patient presented to the emergency room on 03/29/2021 with complaints of nausea vomiting and abdominal pain unable to keep anything down. Patient was fine at her postoperative appointment the day before, patient states that these symptoms started on the morning of March 29. Work-up in emergency room included CBC which showed an elevated white blood count and a CT scan which saw a approximately 5 cm adnexa mass consistent with abscess. Patient is being admitted for treatment of the abdominal pelvic abscess post hysterectomy. Past History Past Medical History: other (endometriosis) Past Surgical History: hysterectomy (RATH on 03/20/2021), Other (BTL) Social history: single, full code Family history: other (Breast Cancer) Medications and Allergies Allergies Allergy/AdvReac Type Severity Reaction Status Date / Time No Known Allergies Allergy Verified 03/29/21 17:09 Home Medications Medication Instructions Recorded Confirmed Last Taken Type Cetirizine HCl [ZyrTEC 10mg cap] 10 mg PO DAILY 03/13/21 03/30/21 03/13/21 09:00 History Fluticasone [Flonase] 2 spray NS QDAY 03/13/21 03/30/21 03/13/21 09:00 History Docusate Sodium [Colace] 100 mg PO DAILY #30 capsule 03/21/21 03/30/21 2 Days Ago Rx ~03/28/21 2 tabs Ferrous Sulfate [Ferrous Sulfate 324 mg PO BID #90 tablet. 03/21/21 03/30/21 Unknown Rx 324 MG] Ibuprofen [Motrin 800 MG tab] 800 mg PO Q8H PRN #30 tablet 03/21/21 03/30/21 1 Day Ago Rx ~03/29/21 oxyCODONE /ACETAMINOPHEN [Percocet 1 - 2 tab PO Q6H PRN #14 tablet 03/21/21 0 03/30/21 Unknown Rx 5/325 mg] Active Meds: Active Medications Acetaminophen (Acetaminophen 325 Mg Tab) 650 mg PO Q4H PRN PRN Reason: Pain MILD(1-3)/Fever >100.5/[place] Hydrocodone Bitart/Acetaminophen (Hydrocodone/Acetaminophen 5-325 Mg Tab) 2 each PO Q6H PRN PRN Reason: Pain, Moderate (4-6) Last Admin: 03/30/21 01:21 Dose: 2 each Documented by: Docusate Sodium (Docusate Sodium 100 Mg Cap) 100 mg PO BID [facility] Last Admin: 03/30/21 01:24 Dose: Not Given Documented by: Sodium Chloride (Nacl 0.9% 1000 Ml) 1,000 mls @ 125 mls/hr IV DIRECT NITESH Last Admin: 03/30/21 01:11 Dose: 125 mls/hr Documented by: Clindamycin HCl (Cleocin 900 Mg/50 Ml) 900 mg in 50 mls @ 100 mls/hr IV Q8H [facility]; Protocol Last Admin: 03/30/21 01:15 Dose: 100 mls/hr Documented by: Gentamicin Sulfate 180 mg/ (Sodium Chloride) 104.5 mls @ 200 mls/hr IV ONCE ONE Stop: 03/30/21 10:31 Gentamicin Sulfate 300 mg/ (Sodium Chloride) 107.5 mls @ 200 mls/hr IV Q24H [facility] Magnesium Hydroxide (Magnesium Hydroxide (Mom) Oral Liqd Udc) 30 ml PO Q4H PRN PRN Reason: Constipation Ondansetron HCl (Ondansetron 4 Mg/2 Ml Inj) 4 mg IV Q8H PRN PRN Reason: Nausea And Vomiting Oxycodone/Acetaminophen (Oxycodone /Acetaminophen 5-325mg Tab) 1 tab PO Q6H PRN PRN Reason: Pain, Moderate (4-6) Sodium Chloride (Sodium Chloride 0.9% 10 Ml Flush Syringe) 10 ml IV BID [facility] Sodium Chloride (Sodium Chloride 0.9% 10 Ml Flush Syringe) 10 ml IV PRN PRN PRN Reason: LINE FLUSH Review of Systems Constitutional: fatigue, poor appetite Ears, nose, mouth and throat: deferred Breasts: deferred Gastrointestinal: abdominal pain, nausea, vomiting Genitourinary Female: pelvic pain Exam - Physical Exam Narrative exam: Patient lying in hospital bed states feels a lot better than she did on admission currently no nausea still complaining of some lower abdominal soreness. - Constitutional Vitals: Temp Pulse Resp BP Pulse Ox 98.3 F 91 H 20 95/54 99 03/30/21 04:46 03/30/21 04:46 03/30/21 04:46 03/30/21 04:46 03/30/21 04:46 General appearance: Present: no acute distress, other - Respiratory Respiratory effort: normal - Cardiovascular Rhythm: regular - Extremities Extremities: no ischemia, No edema, Full ROM - Abdominal General gastrointestinal: Present: soft, tender (Slightly), distended (Slightly) Female genitourinary: Present: deferred Results - Labs CBC & Chem 7: 03/30/21 06:30 03/29/21 17:34 Labs: Abnormal lab results 03/29/21 03/29/21 03/30/21 Range/Units 17:34 17:34 06:30 WBC 15.3 H 16.8 H (4.5-11.0) K/mm3 RBC 3.17 L (3.65-5.03) M/mm3 Hgb 7.2 L D (10.1-14.3) gm/dl Hct 23.5 L D (30.3-42.9) % MCV 75 L 74 L (79-97) fl MCH 23 L 23 L (28-32) pg RDW 23.7 H 23.6 H (13.2-15.2) % Lymph % (Auto) 6.2 L (13.4-35.0) % Lymph # (Auto) 1.0 L (1.2-5.4) K/mm3 Seg Neutrophils % 89.3 H (40.0-70.0) % Seg Neuts % (Manual) 84.0 H (40.0-70.0) % Lymphocytes % (Manual) 12.0 L (13.4-35.0) % Seg Neutrophils # 15.0 H (1.8-7.7) K/mm3 Seg Neutrophils # Man 12.9 H (1.8-7.7) K/mm3 Sodium 134 L (137-145) mmol/L Potassium 3.5 L (3.6-5.0) mmol/L Chloride 95.4 L (98-107) mmol/L Glucose 117 H (65-100) mg/dL AST 80 H (5-40) units/L ALT 57 H (7-56) units/L Alkaline Phosphatase 145 H (35-129) units/L Albumin 3.7 L (3.9-5) g/dL - Imaging and Cardiology CT scan - abdomen: report reviewed CT scan - pelvis: report reviewed Assessment and Plan - Patient Problems (1) History of robot-assisted laparoscopic hysterectomy Current Visit: Yes Status: Acute (2) Intra-abdominal abscess Current Visit: Yes Status: Acute Plan to address problem: Discussed that diagnosis with the patient. Patient was initially treated with IV fluids and dose of IV antibiotics in the emergency room which her condition improved quickly. The patient currently started on gentamicin and clindamycin. She is currently afebrile. Discussed with Dr. Walls this patient admission. Will consider possible interventional radiology consult for possible drainage of this abscess. We will continue antibiotics for now.
[2021-03-30] MEDS ORDERED: GENTAMICIN 180 MG in SODIUM CHLORIDE 0.9% 100 ML IV ONE (10:00)
[2021-03-30] MEDS: ONDANSETRON 4 MG/2 ML INJ IV PRN (10:38)
[2021-03-30 11:10] LABS: Alanine Aminotransferase 29 units/L (7-56); Albumin 3.1 g/dL (3.9-5); Blood Urea Nitrogen 15 mg/dL (7-17); Calcium 8.4 mg/dL (8.4-10.2); Hemolysis Index 4
[2021-03-30 11:11] LABS: BUN/Creatinine Ratio 25
[2021-03-30] MEDS ORDERED: AMPICILLIN/NS 2 GM/100 ML 2 GM/100 ML BAG IV SCH (14:00)
--- NOTE | 2021-03-30 14:12 | Event Note ---
Date: 03/30/21 ID plan of care note: -Called by Dr. Walls today for this patient -Had robotic hysterectomy and B/L saplingectomy 03/20/2021 -Now with N/V and abdominal pain, which began the day of presentation. -Found to have WBC 16.8 -CT with 5cm multiloculated cystic mass in left adnexa probably abscess -Priliminary blood cultures with GPR 10/23 bottles Recommendations: -Follow up blood cultures for ID and RAY -IR consult to drain abscess if possible and send for culture -Stopped amp/gent/clinda -Started ceftriaxone/Flagyl Leah Alegria MD [facility] O: [phone] F: [phone]
[2021-03-30] MEDS: KETOROLAC 30 MG/1 ML INJ IV PRN (14:52)
[2021-03-30] MEDS ORDERED: cefTRIAXone/NS 2 GM/100 ML 2 GM/100 ML BAG IV SCH (15:00)
--- NOTE | 2021-03-30 15:43 | Event Note ---
Date: 03/30/21 Consulted for possible placement of drainage catheter. At this time, the abscess is not sufficiently matured for percutaneous drainage. Additionally, contacted CT department. There is not sufficient staffing availabel for placement of the drainage catheter today given staff shortages. We will plan on reimaging the patient on Friday with repeat CT scan of the abdomen and pelvis and planned aspiration and or placement of drainage catheter on Friday assuming the abscess continues to mature.
--- NOTE | 2021-03-30 16:01 | XRay Report ---
CHEST 2 VIEWS INDICATION / CLINICAL INFORMATION: cough, post op. COMPARISON: None available. FINDINGS: SUPPORT DEVICES: None. HEART / MEDIASTINUM: No significant abnormality. LUNGS / PLEURA: Mild patchy opacities in the lower lungs with obscuration of the posterior costophren ic sulcus suggesting a small volume of pleural fluid. Poor respiratory effort with crowding of the br onchovascular markings. No pneumothorax. ADDITIONAL FINDINGS: No significant additional findings. IMPRESSION: 1. Poor inspiratory effort with mild bibasilar opacities with a tiny amount of pleural fluid in the p osterior costophrenic sulcus. This could represent atelectasis, however developing pneumonia is not e xcluded. Signer Name: Axel Lancaster MD Signed: 03/30/2021 3:57 PM Workstation Name: [id number]
[2021-03-30] MEDS: metroNIDAZOLE/NS 500 MG/100 ML 500 MG/100 ML BAG IV SCH ×2 (16:11→23:42)
--- NOTE | 2021-03-30 17:20 | Event Note ---
Date: 03/30/21 CXR and plan of care discussed. She's aware of the 10/23 +BC and change of antibiotics. She was informed the abscess needs to ? mature more to adequately allow drainage and will continue hospitalization at least over the weekend and possible drainage on Friday. SCD/IC usage and ambulation encouraged. Will allow clear liquids now, possibly abvance to regular tomorrow. Questions encouraged and answered, she voiced understanding and agrees.
[2021-03-30] MEDS: CEFEPIME/NS 2 GM/100 ML 2 GM/100 ML BAG IV SCH (22:40)
[2021-03-31] MEDS: HYDROcodone/ACETAMINOPHEN 5-325 MG TAB PO PRN ×2 (05:23→19:09)
[2021-03-31] MEDS: SODIUM CHLORIDE 0.9% 1000 ML 1,000 ML IV SCH ×2 (05:24→21:15)
[2021-03-31] MEDS ORDERED: guaiFENesin 100 MG/5 ML ORAL LIQD PO PRN (07:30)
[2021-03-31] MEDS: metroNIDAZOLE/NS 500 MG/100 ML 500 MG/100 ML BAG IV SCH ×3 (08:34→22:57)
[2021-03-31] MEDS ORDERED: GENTAMICIN 300 MG in SODIUM CHLORIDE 0.9% 100 ML IV SCH (10:00)
--- NOTE | 2021-03-31 10:45 | Consultation ---
History of Present Illness - Reason for Consult Consult date: 03/31/21 Sepsis, abscess Requesting physician: JESSIE MARTINEZ - History of Present Illness The patient is a 46-year-old female who underwent robotic hysterectomy and bilateral salpingectomy on 03/20/2021 admitted to the hospital with nausea, vomiting and abdominal pain. Also noted to have leukocytosis with CT evidence of a 5 cm multiloculated cystic mass in the left adnexa concerning for possible abscess. Blood cultures turn positive for gram-positive rods, hence infectious diseases was consulted. Initially, received ampicillin, gentamicin and clindamycin which was changed to ceftriaxone and Flagyl. She had another fever last night and was switched to cefepime, Flagyl. Now with slight cough, lying in bed. Abdominal pain continues. Review of Systems: General: no fevers,chills or rigors HEENT: no new visual disturbance Respiratory: mild cough, no sputum, hemoptysis or shortness of breath Cardiovascular: No chest pain, syncope Gastrointestinal: No nausea, vomiting or diarrhea Genitourinary: No dysuria or hematuria Musculoskeletal: No new or worsening neck pain or back pain Neurologic: No headaches, seizures Hematologic: No easy bruising or bleeding Endocrine: No night sweats or acute weight loss Skin: negative for rash, jaundice Psychiatric: No suicidal or homicidal ideation Past History Past Medical History: other (endometriosis) Past Surgical History: hysterectomy (RATH on 03/20/2021), Other (BTL) Social history: single, full code Family history: other (Breast Cancer) Medications and Allergies Allergies Allergy/AdvReac Type Severity Reaction Status Date / Time No Known Allergies Allergy Verified 03/29/21 17:09 Home Medications Medication Instructions Recorded Confirmed Last Taken Type Cetirizine HCl [ZyrTEC 10mg cap] 10 mg PO DAILY 03/13/21 03/30/21 03/13/21 09:00 History Fluticasone [Flonase] 2 spray NS QDAY 03/13/21 03/30/21 03/13/21 09:00 History Docusate Sodium [Colace] 100 mg PO DAILY #30 capsule 03/21/21 03/30/21 2 Days Ago Rx ~03/28/21 2 tabs Ferrous Sulfate [Ferrous Sulfate 324 mg PO BID #90 tablet. 03/21/21 03/30/21 Unknown Rx 324 MG] Ibuprofen [Motrin 800 MG tab] 800 mg PO Q8H PRN #30 tablet 03/21/21 03/30/21 1 Day Ago Rx ~03/29/21 oxyCODONE /ACETAMINOPHEN [Percocet 1 - 2 tab PO Q6H PRN #14 tablet 03/21/21 03/30/21 Unknown Rx 5/325 mg] Active Meds: Active Medications Hydrocodone Bitart/Acetaminophen (Hydrocodone/Acetaminophen 5-325 Mg Tab) 2 each PO Q6H PRN PRN Reason: Pain, Moderate (4-6) Last Admin: 03/31/21 05:23 Dose: 2 each Documented by: Docusate Sodium (Docusate Sodium 100 Mg Cap) 100 mg PO BID NITESH Last Admin: 03/30/21 22:44 Dose: 100 mg Documented by: Guaifenesin (Guaifenesin 100 Mg/5 Ml Oral Liqd) 200 mg PO Q4H PRN PRN Reason: Cough Last Admin: 03/31/21 08:35 Dose: 200 mg Documented by: Sodium Chloride (Nacl 0.9% 1000 Ml) 1,000 mls @ 125 mls/hr IV DIRECT NITESH Last Admin: 03/31/21 05:24 Dose: 125 mls/hr Documented by: Metronidazole (Flagyl 500 Mg/100 Ml) 500 mg in 100 mls @ 100 mls/hr IV Q8HR [facility]; Protocol Last Admin: 03/31/21 08:34 Dose: 100 mls/hr Documented by: Cefepime HCl (Cefepime/Ns 2 Gm/100 Ml) 2 gm in 100 mls @ 200 mls/hr IV Q12HR [facility]; Protocol Last Admin: 03/30/21 22:40 Dose: 200 mls/hr Documented by: Ketorolac Tromethamine (Ketorolac 30 Mg/1 Ml Inj) 30 mg IV Q6H PRN PRN Reason: Pain, Moderate (4-6) Stop: 04/04/21 09:59 Last Admin: 03/30/21 14:52 Dose: 30 mg Documented by: Magnesium Hydroxide (Magnesium Hydroxide (Mom) Oral Liqd Udc) 30 ml PO Q4H PRN PRN Reason: Constipation Morphine Sulfate (Morphine 2 Mg/1 Ml Inj) 2 mg IV Q4H PRN PRN Reason: Pain, severe (7-10) Ondansetron HCl (Ondansetron 4 Mg/2 Ml Inj) 4 mg IV Q8H PRN PRN Reason: Nausea And Vomiting Last Admin: 03/30/21 10:38 Dose: 4 mg Documented by: Oxycodone/Acetaminophen (Oxycodone /Acetaminophen 5-325mg Tab) 1 tab PO Q6H PRN PRN Reason: Pain, Moderate (4-6) Sodium Chloride (Sodium Chloride 0.9% 10 Ml Flush Syringe) 10 ml IV BID NITESH Sodium Chloride (Sodium Chloride 0.9% 10 Ml Flush Syringe) 10 ml IV PRN PRN PRN Reason: LINE FLUSH Physical Examination - Physical Exam Narrative exam: Physical Exam: Constitutional: Alert, cooperative. No acute distress Head, Ears, Nose: Normocephalic, atraumatic. External ears, nose normal Eyes: Conjunctivae/corneas clear. No icterus. No ptosis. Neck: Supple, no meningeal signs Cardiovascular: S1, S2 normal. Respiratory: Good air entry, clear to auscultation bilaterally GI: tenderness +, small incisions well healed; bowel sounds normal. No peritoneal signs Musculoskeletal: No pedal edema, no cyanosis. Skin: No rash or abscess Hem/Lymphatic: No palpable cervical or supraclavicular nodes. No lymphangitis Psych: Mood ok. Affect normal Neurological: Awake, alert, oriented. No gross abnormality - Constitutional Vitals: Vital Signs Temp Pulse Resp BP Pulse Ox 98.5 F 104 H 20 95/53 93 03/31/21 08:35 03/31/21 08:35 03/31/21 08:35 03/31/21 08:35 03/31/21 08:35 Temperature -Last 24 Hours Temperature 98.5 F Temperature 102.3 F Temperature 102.9 F Temperature 99.2 F Temperature 103.0 F Temperature 99.4 F Temperature 98.2 F Results - Labs CBC & Chem 7: 03/30/21 06:30 03/30/21 09:47 Labs: Abnormal lab results 03/30/21 Range/Units 09:47 Potassium 3.5 L (3.6-5.0) mmol/L Alkaline Phosphatase 131 H (35-129) units/L Albumin 3.1 L (3.9-5) g/dL - Imaging and Cardiology Chest x-ray: report reviewed, image reviewed (no pneumonia) CT scan - abdomen: report reviewed (left adnexal abscess) Assessment and Plan Cultures: 03/29/2021 blood culture: One of four bottles with GPR A/P: 46-year-old female who underwent robotic hysterectomy and bilateral salpingectomy on 03/20/2021 admitted with: #Sepsis, likely secondary to left adnexal abscess: CXR without pneumonia #Bacteremia: 1 out of 4 bottles with gram-positive rods. Could possibly be a contaminant, will depend on organism identification Recs: Continue Cefepime 2 gm q12 hr, Flagyl 500 mg q8 for now Awaiting IR drainage Fevers may continue till there is source control/drainage f/u blood culture identification Sarkis Mcdonald MD, FACP [facility] O: [phone] F: [phone]
[2021-03-31] MEDS: KETOROLAC 30 MG/1 ML INJ IV PRN (11:58)
[2021-03-31] MEDS: CEFEPIME/NS 2 GM/100 ML 2 GM/100 ML BAG IV SCH (11:58)
[2021-03-31] MEDS: DOCUSATE SODIUM 100 MG CAP PO SCH ×2 (12:16→22:57)
[2021-03-31] MEDS: ACETAMINOPHEN 325 MG TAB PO PRN (13:25)
[2021-03-31] MEDS: ONDANSETRON 4 MG/2 ML INJ IV PRN ×2 (14:47→19:04)
--- NOTE | 2021-03-31 14:51 | Progress Note ---
Assessment and Plan - Patient Problems (1) History of robot-assisted laparoscopic hysterectomy Current Visit: Yes Status: Acute Plan to address problem: Labs reviewed from yesterday show a drop in her hematocrit will repeat labs this afternoon. (2) Intra-abdominal abscess Current Visit: Yes Status: Acute Plan to address problem: Notes from infectious disease and interventional radiology reviewed. Patient with fever this afternoon we will treat with Tylenol as noted before she might have fever and of course of this treatment will continue to monitor closely. Subjective Date of service: 03/31/21 Patient Reports: Positive: no new complaints, still having pain (Lower quadrants), pain is less, tolerating liquids well, voiding w/o difficulty, fever. Negative: vomiting Objective Vital Signs - 12hr 03/31/21 03/31/21 03/31/21 05:00 06:20 08:35 Temperature 102.9 F H 102.3 F H 98.5 F Pulse Rate 63 104 H Respiratory 18 20 Rate Blood Pressure 95/53 Blood Pressure 126/79 [Left] O2 Sat by Pulse 99 93 Oximetry 03/31/21 12:02 Temperature 101.1 F H Pulse Rate 127 H Respiratory 20 Rate Blood Pressure Blood Pressure 133/76 [Left] O2 Sat by Pulse 94 Oximetry - General physical appearance well developed - Respiratory normal respiratory effort - Abdomen soft, tender (Mildly), distended (Slightly) - Integumentary no rash, no growths, no abnormal pigmentation - Psychiatric oriented to time, oriented to person, oriented to place, speech is normal, memory intact - Labs 03/30/21 06:30 03/30/21 09:47 - Imaging Chest x-ray: report reviewed
[2021-03-31 16:54] LABS: Hematocrit 22.9 % (30.3-42.9); Hemoglobin 7.3 gm/dl (10.1-14.3); Mean Corpuscular HGB Conc 32 % (30-34); Mean Corpuscular Volume 74 fl (79-97); Platelet Count 284 K/mm3 (140-440); Red Blood Count 3.09 M/mm3 (3.65-5.03)
[2021-03-31 16:57] LABS: Red Cell Distribution Width 23.6 % (13.2-15.2)
[2021-03-31 18:01] LABS: Total Cells Counted 100
[2021-03-31 18:03] LABS: Anisocytosis 1+; Hypochromasia 1+
[2021-03-31 18:04] LABS: Platelet Estimate Consistent w Auto
[2021-04-01] MEDS: ACETAMINOPHEN 325 MG TAB PO PRN ×2 (01:22→09:14)
[2021-04-01] MEDS: CEFEPIME/NS 2 GM/100 ML 2 GM/100 ML BAG IV SCH ×2 (01:22→14:12)
[2021-04-01] MEDS: metroNIDAZOLE/NS 500 MG/100 ML 500 MG/100 ML BAG IV SCH ×3 (06:27→23:39)
[2021-04-01] MEDS: KETOROLAC 30 MG/1 ML INJ IV PRN ×3 (06:27→20:11)
[2021-04-01] MEDS: ONDANSETRON 4 MG/2 ML INJ IV PRN ×2 (06:27→14:10)
[2021-04-01] MEDS: SODIUM CHLORIDE 0.9% 1000 ML 1,000 ML IV SCH ×3 (06:38→23:47)
[2021-04-01] MEDS: DOCUSATE SODIUM 100 MG CAP PO SCH (09:15)
--- NOTE | 2021-04-01 14:04 | Progress Note ---
Assessment and Plan Cultures: 03/29/2021 blood culture: One of four bottles with Bacillus A/P: 46-year-old female who underwent robotic hysterectomy and bilateral salpingectomy on 03/20/2021 admitted with: #Sepsis, likely secondary to left adnexal abscess: CXR without pneumonia #Bacteremia: 1 out of 4 bottles with Bacillus, likely a contaminant, no treatment needed. Recs: Continue Cefepime 2 gm q12 hr, Flagyl 500 mg q8 for now Awaiting IR drainage, please send cultures Fevers and leucocytosis may continue till there is source control/drainage Sarkis Mcdonald MD, FACP [facility] ([facility] O: [phone] F: [phone] Subjective Date of service: 04/01/21 Interval history: No fever. Abdominal pain +. No new complaints. Tolerating abx, no rash. Objective - Exam Narrative Exam: Physical Exam: Constitutional: Alert, cooperative. No acute distress Head, Ears, Nose: Normocephalic, atraumatic. External ears, nose normal Eyes: Conjunctivae/corneas clear. No icterus. No ptosis. Neck: Supple, no meningeal signs Cardiovascular: S1, S2 normal. Respiratory: Good air entry, clear to auscultation bilaterally GI: tenderness +, small incisions well healed; bowel sounds normal. No perit eller signs Musculoskeletal: No pedal edema, no cyanosis. Skin: No rash or abscess Hem/Lymphatic: No palpable cervical or supraclavicular nodes. No lymphangitis Psych: Mood ok. Affect normal Neurological: Awake, alert, oriented. No gross abnormality - Constitutional Vitals: Vital Signs Temp Pulse Resp BP Pulse Ox 98.4 F 90 20 134/92 97 04/01/21 12:55 04/01/21 12:55 04/01/21 12:55 04/01/21 12:55 04/01/21 12:55 Temperature -Last 24 Hours Temperature 98.4 F Temperature 97.7 F Temperature 98.3 F Temperature 98.7 F Temperature 98.6 F Temperature 98.3 F Temperature 98.8 F - Labs CBC & Chem 7: 03/31/21 16:11 03/30/21 09:47 Labs: Abnormal lab results 03/31/21 Range/Units 16:11 WBC 18.4 H (4.5-11.0) K/mm3 RBC 3.09 L (3.65-5.03) M/mm3 Hgb 7.3 L (10.1-14.3) gm/dl Hct 22.9 L (30.3-42.9) % MCV 74 L (79-97) fl MCH 24 L (28-32) pg RDW 23.6 H (13.2-15.2) % Seg Neuts % (Manual) 92.0 H (40.0-70.0) % Lymphocytes % (Manual) 4.0 L (13.4-35.0) % Seg Neutrophils # Man 16.9 H (1.8-7.7) K/mm3 Lymphocytes # (Manual) 0.7 L (1.2-5.4) K/mm3
--- NOTE | 2021-04-01 14:38 | Progress Note ---
Assessment and Plan - Patient Problems (1) History of robot-assisted laparoscopic hysterectomy Current Visit: Yes Status: Acute (2) Intra-abdominal abscess Current Visit: Yes Status: Acute Plan to address problem: Patient is presently afebrile. Appreciate Dr. Mcdonald's help. Plan to move forward with drainage of abscess on tomorrow. Patient with some vomiting we will continue to monitor patient is n.p.o. at present and states feels a lot better. (3) Anemia Current Visit: No Status: Chronic Qualifiers: Iron deficiency anemia type: chronic blood loss Plan to address problem: Patient denies any orthostatic symptoms. Hematocrit and hemoglobin drawn yes terday was stable and more closely aligns with her post operative hemoglobin hematocrit last week. We will continue to monitor. Had discussion with the patient about criteria for blood transfusion. Subjective Patient Reports: Positive: no new complaints, still having pain, pain is less, voiding w/o difficulty, flatus, vomiting (Approximately 3 times in the last 24 hours), afebrile (Greater than 12 hours) Objective Vital Signs - 12hr 04/01/21 04/01/21 04/01/21 04:46 06:27 08:02 Temperature 98.7 F 98.3 F Pulse Rate 100 H 85 Respiratory 20 18 18 Rate Blood Pressure 119/78 139/89 O2 Sat by Pulse 98 90 Oximetry 04/01/21 04/01/21 04/01/21 09:12 09:14 12:48 Temperature 97.7 F Pulse Rate 83 Respiratory 20 20 18 Rate Blood Pressure 136/85 O2 Sat by Pulse 92 Oximetry 04/01/21 12:55 Temperature 98.4 F Pulse Rate 90 Respiratory 20 Rate Blood Pressure 134/92 O2 Sat by Pulse 97 Oximetry - General physical appearance well developed, well nourished - Respiratory normal respiratory effort - Abdomen soft, tender (Slightly), distended (Slightly), surgical scars (Well-healed) - Integumentary no rash, no growths, no abnormal pigmentation - Neurologic normal coordination, normal sensation - Musculoskeletal normal gait, normal posture - Psychiatric oriented to time, oriented to person, oriented to place, speech is normal, memory intact - Labs 03/31/21 16:11 03/30/21 09:47
--- NOTE | 2021-04-02 00:17 | Cat Scan Report ---
CT ABDOMEN AND PELVIS WITH IV CONTRAST INDICATION: Reevaluate pelvic fluid collection. TECHNIQUE: Following the administration of intravenous contrast, multiple axial CT images of the abdo men and pelvis were acquired. Sagittal and coronal reformats were obtained. All CT performed at this facility utilize dose reduction techniques including automated exposure control, iterative reconstru ction and weight based dosing when appropriate to reduce patient radiation dose to as low as reasonab ly achievable. COMPARISON: CT of the abdomen and pelvis, 03/29/2021 FINDINGS: Limited imaging of the bilateral lung bases demonstrates faint patchy parenchymal densities, right gr eater than left. There has been interval development of small bilateral pleural effusions with associ ated atelectasis. ABDOMEN: There is a small amount of free fluid throughout the upper abdomen similar to the previous study. The liver, spleen, gallbladder, pancreas, bilateral adrenal glands and bilateral kidneys show no evidenc e of acute abnormality. The abdominal aorta is normal in caliber. There is no evidence of bowel obstr uction PELVIS: The peripherally enhancing fluid collection within the left pelvis is again noted and has not signifi cantly changed measuring 4.2 x 4.8 x 5.1 cm. There are a few enhancing loculations. There are a few s mall foci of air now seen within the midline pelvis adjacent to the fluid collection that may be extr aluminal but this is difficult to determine due to multiple loops of adjacent bowel. The urinary blad mili is decompressed but appears grossly normal. Mild to moderate inflammatory changes within the pelv is are similar to the previous study BONES AND SOFT TISSUES: Evaluation of bony structures demonstrates no evidence of acute bony abnormal ity. Evaluation of soft tissue structures demonstrates interval development of mild anasarca within t he flanks and hip soft tissues. IMPRESSION: 1. Stable size of left pelvic enhancing fluid collection as described, favored to represent abscess. 2. Faint bibasilar pulmonary opacities with small bilateral pleural effusions. Considerations would i nclude developing pneumonia or volume overloaded state such as pulmonary edema. 3. Stable small amount of free abdominopelvic fluid. Signer Name: Arleen Cruz MD Signed: 04/02/2021 12:12 AM Workstation Name: [id number]
[2021-04-02] MEDS: KETOROLAC 30 MG/1 ML INJ IV PRN ×4 (02:20→23:52)
[2021-04-02] MEDS: CEFEPIME/NS 2 GM/100 ML 2 GM/100 ML BAG IV SCH ×2 (02:21→15:19)
[2021-04-02] MEDS: DOCUSATE SODIUM 100 MG CAP PO SCH ×3 (02:29→22:00)
[2021-04-02] MEDS: MORPHINE 2 MG/1 ML INJ IV PRN (06:40)
[2021-04-02] MEDS: metroNIDAZOLE/NS 500 MG/100 ML 500 MG/100 ML BAG IV SCH ×2 (08:02→17:57)
--- NOTE | 2021-04-02 10:16 | Progress Note ---
Assessment and Plan - Patient Problems (1) H/O abdominal surgery Current Visit: Yes Status: Acute (2) History of robot-assisted laparoscopic hysterectomy Current Visit: Yes Status: Acute Plan to address problem: POD #6 -pain well controlled -no c/o regarding sx -will have abscess drained today. (3) Intra-abdominal abscess Current Visit: Yes Status: Acute (4) Sepsis Current Visit: Yes Status: Acute Qualifiers: Sepsis type: sepsis due to unspecified organism Sepsis acute organ dysfunction status: without acute organ dysfunction Qualified Code(s): A41.9 - Sepsis, unspecified organism Plan to address problem: -currently afebrile. Will con't antibx at this time -will await recommendations from ID regarding outpt management pending growth on abscess to be drained today Subjective - Subjective Date of service: 04/02/21 (late entry. Pt seen at 0845) Principal diagnosis: s/p RATH now with abscess, febril morbidity, and nausea with emesis Interval history: Pt states she has not has any emesis since early yesterday am. She had some watermelon her sister brought to her last evening and tolerated it well. States she does feel a little better but is afraid to eat. She is scheduled for CT guided drainage of collection this am and is thus npo. Last temp was Friday at 12noon(>36hours). Patient reports: appetite normal, voiding normally, pain well controlled, ambulating normally, no dizzy ambulation, no nauseated Objective - Vital Signs Latest vital signs: Vital Signs Temp Pulse Resp Resp BP BP Pulse Ox 04/02/21 07:28 98 F 92 H 19 127/69 97 04/02/21 06:40 24 04/02/21 05:47 97.8 F 95 H 18 132/87 99 04/02/21 02:20 26 H 04/02/21 01:30 98.1 F 91 H 16 134/75 99 04/01/21 21:48 98.3 F 95 H 18 132/84 93 04/01/21 20:11 26 H 04/01/21 20:10 26 H 26 H 04/01/21 16:38 97.9 F 84 20 139/90 95 04/01/21 12:55 98.4 F 90 20 134/92 97 04/01/21 12:48 97.7 F 83 18 136/85 92 Intake and Output 04/01/21 04/02/21 04/02/21 22:59 06:59 14:59 Intake Total 1100 100 Output Total 652 200 Balance 448 -100 Intake: IV 1100 100 FLAGYL 500 MG/100 ML 500 100 100 mg In 100 ml @ 100 mls/hr IV Q8HR [facility] Rx#: [id number] NaCl 0.9% 1000 ml 1,000 1000 ml @ 125 mls/hr IV DIRECT [facility] Rx#:[id number] Oral 0 Intake, Free Water 0 Output: Urine 650 200 Void 650 200 Emesis 2 Other: Total, Intake Amount 0 Total, Output Amount 300 200 Voiding Method Toilet Toilet # Voids Void 3 1 400 # Bowel Movements 2 - Exam Cardiovascular: Present: Normal S1, Normal S2 Lungs: Present: Clear to auscultation, Normal air movement Abdomen: Present: normal appearance, soft, normal bowel sounds. Absent: distention, tenderness, guarding Incision: Present: normal, dry, intact
[2021-04-02] MEDS: ONDANSETRON 4 MG/2 ML INJ IV PRN ×2 (10:39→23:10)
[2021-04-02] MEDS: SODIUM CHLORIDE 0.9% 1000 ML 1,000 ML IV SCH (12:48)
[2021-04-02] MEDS ORDERED: fentaNYL 100 MCG/2 ML INJ IV NR (13:19)
[2021-04-02] MEDS ORDERED: MIDAZOLAM 5 MG/5 ML INJ MDV IV NR (13:19)
--- NOTE | 2021-04-02 13:43 | Progress Note ---
Assessment and Plan Cultures: 03/29/2021 blood culture: One of four bottles with Bacillus A/P: 46-year-old female who underwent robotic hysterectomy and bilateral salpingectomy on 03/20/2021 admitted with: #Sepsis, likely secondary to left adnexal abscess: CXR without pneumonia #Bacteremia: 1 out of 4 bottles with Bacillus, likely a contaminant, no treatment needed. Recs: Continue Cefepime 2 gm q12 hr, Flagyl 500 mg q8 for now Awaiting IR drainage, please send cultures Fevers and leucocytosis may continue till there is source control/drainage Leah Alegria MD [facility] O: [phone] F: [phone] Subjective Date of service: 04/02/21 Principal diagnosis: s/p RATH now with abscess, febril morbidity, and nausea with emesis Interval history: Afebrile now, white count 18.4. Covid negative. Blood culture with bacillus s pecies no other acute issues. Imaging personally reviewed: CT abdomen pelvis: Stable abscess Objective - Exam Narrative Exam: Physical Exam: Constitutional: Alert, cooperative. No acute distress Head, Ears, Nose: Normocephalic, atraumatic. Eyes: Conjunctivae/corneas clear. No icterus. No ptosis. Neck: Supple, no meningeal signs Cardiovascular: S1, S2 normal. Respiratory: Good air entry, clear to auscultation bilaterally GI: tenderness +, small incisions well healed; bowel sounds normal. No peritoneal signs Musculoskeletal: No pedal edema, no cyanosis. Skin: No rash or abscess Hem/Lymphatic: No palpable cervical or supraclavicular nodes. No lymphangitis Psych: Mood ok. Affect normal Neurological: Awake, alert, oriented. No gross abnormality - Constitutional Vitals: Vital Signs Temp Pulse Resp BP Pulse Ox 98 F 88 18 148/77 100 04/02/21 12:10 04/02/21 12:10 04/02/21 12:10 04/02/21 12:10 04/02/21 12:10 Temperature -Last 24 Hours Temperature 98 F Temperature 98 F Temperature 97.8 F Temperature 98.1 F Temperature 98.3 F Temperature 97.9 F - Labs CBC & Chem 7: 03/31/21 16:11 03/30/21 09:47
--- NOTE | 2021-04-02 14:50 | Post Operative Note ---
Date of procedure: 04/02/21 Pre-op diagnosis: Pelvic fluid collection Post-op diagnosis: same Procedure: CT guided 20 gauge needle placement in the left adenexal mass CT guided aspiration of the left pelvic fluid Anesthesia: local (w/ conscious sedation) Surgeon: RADHA POWELL Estimated blood loss: minimal Condition: stable Disposition: floor
--- NOTE | 2021-04-02 14:51 | Operative Report ---
Operative Report Operative Report: EXAM: 1. CT-guided aspiration of a left adnexal fluid collection DATE: 04/02/2021 MENTALLY RETARDED TEACHER: RADHA POWELL MD INDICATION: Left adnexal fluid collection MEDICATIONS: Please see nursing report for full details. DEVICES: 20-gauge Franseen needle, 20 cm CONTRAST: None PROCEDURE: The risks, benefits, and alternatives were discussed with the patient; written informed consent was obtained. The patient was patent supine position on the CT gantry and wood filler imaging was obtained demonstrating a window available for percutaneous aspiration. There was no window for percutaneous drainage. The patient's left flank was prepped and draped in a sterile fashion. From a left sided approach, under direct CT guidance, a 20-gauge Franseen needle was passed into the left adnexal collection. [place] dissection with lidocaine was used to push the left iliac vasculature away from the needle. This was performed under direct CT guidance. Once the needle was in the left adnexal collection, approximately 10 mL of purulent material was aspirated and sent for culture. No further fluid could be aspirated through the small gauge of the needle. This pathway was not amenable for a drain. At this point, the needle was removed and repeat CT scan was performed at 5 minutes and 10 minutes demonstrating no hematoma along the left iliac vessels. Patient tolerated the procedure well. No immediate postprocedural complication. FINDINGS: Please see procedure note above. IMPRESSION: Successful CT-guided aspiration of a left adnexal fluid collection.
[2021-04-03] MEDS: metroNIDAZOLE/NS 500 MG/100 ML 500 MG/100 ML BAG IV SCH ×5 (01:59→22:00)
[2021-04-03] MEDS: CEFEPIME/NS 2 GM/100 ML 2 GM/100 ML BAG IV SCH ×3 (02:00→14:01)
[2021-04-03] MEDS: SODIUM CHLORIDE 0.9% 1000 ML 1,000 ML IV SCH ×2 (03:13→17:42)
[2021-04-03] MEDS: KETOROLAC 30 MG/1 ML INJ IV PRN ×4 (06:33→23:03)
[2021-04-03] MEDS: MORPHINE 2 MG/1 ML INJ IV PRN (07:50)
--- NOTE | 2021-04-03 13:50 | Progress Note ---
Assessment and Plan Cultures: 03/29/2021 blood culture: One of four bottles with Bacillus A/P: 46-year-old female who underwent robotic hysterectomy and bilateral salpingectomy on 03/20/2021 admitted with: #Sepsis, likely secondary to left adnexal abscess: CXR without pneumonia #Bacteremia: 1 out of 4 bottles with Bacillus, likely a contaminant, no treatment needed. Recs: Continue Cefepime 2 gm q12 hr, Flagyl 500 mg q8 for now Await drainage cultures Fevers and leucocytosis may continue till there is source control/drainage Leah Alegria MD [facility] ([facility] O: [phone] F: [phone] Subjective Date of service: 04/03/21 Principal diagnosis: s/p RATH now with abscess, febril morbidity, and nausea with emesis Interval history: Afebrile, white count 18.4. Had CT-guided drainage of adnexal abscess today. Objective - Exam Narrative Exam: Physical Exam: Constitutional: Alert, cooperative. No acute distress Head, Ears, Nose: Normocephalic, atraumatic. Eyes: Conjunctivae/corneas clear. No icterus. No ptosis. Neck: Supple, no meningeal signs Cardiovascular: S1, S2 normal. Respiratory: Good air entry, clear to auscultation bilaterally GI: tenderness +, small incisions well healed; bowel sounds normal. No peritoneal signs Musculoskeletal: No pedal edema, no cyanosis. Skin: No rash or abscess Hem/Lymphatic: No palpable cervical or supraclavicular nodes. No lymphangitis Psych: Mood ok. Affect normal Neurological: Awake, alert, oriented. No gross abnormality - Constitutional Vitals: Vital Signs Temp Pulse Resp BP Pulse Ox 97.9 F 83 20 145/92 99 04/03/21 12:20 04/03/21 12:20 04/03/21 12:20 04/03/21 12:20 04/03/21 12:20 Temperature -Last 24 Hours Temperature 97.9 F Temperature 98.1 F Temperature 98.6 F Temperature 98.6 F Temperature 98.6 F Temperature 97.7 F - Labs CBC & Chem 7: 03/31/21 16:11 03/30/21 09:47
[2021-04-03] MEDS: DOCUSATE SODIUM 100 MG CAP PO SCH ×2 (14:02→22:59)
[2021-04-03] MEDS: ONDANSETRON 4 MG/2 ML INJ IV PRN (15:15)
--- NOTE | 2021-04-03 16:13 | Progress Note ---
Assessment and Plan - Patient Problems (1) Intra-abdominal abscess post-procedure Current Visit: Yes Status: Acute Plan to address problem: POD#1 s/p CT guided drainage, wound culture no growth at 24h Cefepime Day 3 Flagyl Day 4 (2) Febrile illness Current Visit: Yes Status: Acute Plan to address problem: Afebrile > 48hours (3) History of robot-assisted laparoscopic hysterectomy Current Visit: Yes Status: Acute Plan to address problem: POD#14 (4) Nausea Current Visit: Yes Status: Acute Plan to address problem: Continue clear liquids BMP in am (5) Anemia Current Visit: No Status: Chronic Qualifiers: Iron deficiency anemia type: chronic blood loss Plan to address problem: stable, CBC in am Subjective - Subjective Date of service: 04/03/21 Principal diagnosis: s/p RATH now with abscess, febrile morbidity, and nausea Interval history: Resting in bed, feels better, still with pain and nausea, no emesis today. Denies vaginal drainage/discharge or bleeding Patient reports: flatus, appetite poor (still with nausea), no bowel movement Objective - Vital Signs Latest vital signs: Vital Signs Temp Pulse Pulse Resp Resp BP BP 04/03/21 12:20 97.9 F 83 20 145/92 04/03/21 07:50 18 04/03/21 07:13 98.1 F 78 20 142/89 04/03/21 06:33 18 04/03/21 04:32 98.6 F 81 18 121/70 04/03/21 00:00 98.6 F 95 H 16 139/72 04/02/21 23:52 18 04/02/21 22:00 74 18 18 04/02/21 19:30 98.6 F 74 18 126/70 Pulse Ox 04/03/21 12:20 99 04/03/21 07:50 04/03/21 07:13 99 04/03/21 06:33 04/03/21 04:32 04/03/21 00:00 04/02/21 23:52 04/02/21 22:00 04/02/21 19:30 Intake and Output 04/03/21 04/03/21 04/03/21 06:59 14:59 22:59 Intake Total 100 60 Output Total 1800 1300 Balance -1700 -1240 Intake: IV 100 FLAGYL 500 MG/100 ML 500 100 mg In 100 ml @ 100 mls/hr IV Q8HR [facility] Rx#: [id number] Oral 60 Output: Urine 1800 1300 Void 1800 1300 Other: Total, Intake Amount 60 Total, Output Amount 900 600 Voiding Method Toilet - Exam Breasts: Present: deferred Lungs: Present: Other (decreased BS at right base, Clear left) Abdomen: Present: normal appearance, soft, normal bowel sounds. Absent: disten tion, guarding Extremities: Present: normal. Absent: tenderness, edema Incision: Present: normal, dry, intact
[2021-04-03] MEDS: METOCLOPRAMIDE 10 MG/2 ML INJ IV PRN (17:44)
[2021-04-04] MEDS: metroNIDAZOLE/NS 500 MG/100 ML 500 MG/100 ML BAG IV SCH ×3 (01:30→19:43)
[2021-04-04] MEDS: CEFEPIME/NS 2 GM/100 ML 2 GM/100 ML BAG IV SCH ×2 (02:45→14:00)
[2021-04-04] MEDS: SODIUM CHLORIDE 0.9% 1000 ML 1,000 ML IV SCH (06:27)
[2021-04-04] MEDS: KETOROLAC 30 MG/1 ML INJ IV PRN (06:30)
[2021-04-04] MEDS: ONDANSETRON 4 MG/2 ML INJ IV PRN ×2 (06:39→14:36)
[2021-04-04 09:15] LABS: Hematocrit 25.1 % (30.3-42.9); Hemoglobin 7.8 gm/dl (10.1-14.3); Mean Corpuscular HGB Conc 31 % (30-34); Mean Corpuscular Volume 73 fl (79-97); Platelet Count 413 K/mm3 (140-440); Red Blood Count 3.45 M/mm3 (3.65-5.03)
[2021-04-04 09:37] LABS: Alanine Aminotransferase 7 units/L (7-56); Albumin 2.7 g/dL (3.9-5); Blood Urea Nitrogen 2 mg/dL (7-17); Calcium 8.1 mg/dL (8.4-10.2); Hemolysis Index 0
[2021-04-04 09:48] LABS: BUN/Creatinine Ratio 4
[2021-04-04 10:32] LABS: Anisocytosis 2+; Band Neutrophils # (Manual) 0.2 K/mm3; Hypochromasia 2+; Total Cells Counted 100
[2021-04-04 10:33] LABS: Platelet Estimate Consistent w Auto
[2021-04-04] MEDS: METOCLOPRAMIDE 10 MG/2 ML INJ IV PRN ×2 (11:30→22:24)
[2021-04-04] MEDS: POTASSIUM CHLORIDE 10 MEQ 10 MEQ/100 ML BAG IV SCH ×4 (11:31→17:10)
[2021-04-04] MEDS: DOCUSATE SODIUM 100 MG CAP PO SCH ×2 (11:34→21:52)
--- NOTE | 2021-04-04 13:45 | Progress Note ---
Assessment and Plan Plan of care discussed w/ patient. She voiced understanding and agrees - Patient Problems (1) Intra-abdominal abscess post-procedure Current Visit: Yes Status: Acute Plan to address problem: POD#2 s/p CT guided drainage, wound culture no growth at 24h Cefepime Day 4 Flagyl Day 5 (2) Febrile illness Current Visit: Yes Status: Acute Plan to address problem: Afebrile > 72hours Patient doing well, she will probably be able to go home on PO antibiotics once she can tolerate PO (3) History of robot-assisted laparoscopic hysterectomy Current Visit: Yes Status: Acute Plan to address problem: POD#15 no bleeding or vaginal drainage (4) Nausea Current Visit: Yes Status: Acute Plan to address problem: Continue clear liquids Uncertain etiology RUQ US (5) Anemia Current Visit: No Status: Chronic Qualifiers: Iron deficiency anemia type: chronic blood loss Plan to address problem: stable (6) Hypokalemia Current Visit: Yes Status: Acute Plan to address problem: IV K+ supplementation Will rechk in AM Subjective - Subjective Date of service: 04/04/21 Principal diagnosis: POD#15 RALTH, POD#2 CT drainage of abscess, N/V Interval history: Resting in bed, feels better, still with nausea and vomiting that occurs ~twice a day, described as "yellowish stuff". Denies vaginal drainage/discharge or bleeding. She doesn't think N/V is associated with foods, mediations or sinus drainage. Patient reports: pain well controlled, appetite poor, ambulating normally Objective - Vital Signs Latest vital signs: Vital Signs Temp Pulse Pulse Resp BP BP Pulse Ox 04/04/21 07:30 97.9 F 83 18 135/80 98 04/04/21 06:30 18 04/04/21 05:00 98.0 F 72 20 133/76 100 04/04/21 00:54 97.9 F 85 20 122/53 98 04/03/21 23:03 18 04/03/21 19:46 98.9 F 90 20 131/78 100 04/03/21 19:15 70 18 04/03/21 17:44 18 04/03/21 16:44 97.6 F 79 20 156/88 98 Intake and Output 04/03/21 04/04/21 04/04/21 22:59 06:59 14:59 Intake Total 100 1100 100 Output Total 510 1300 800 Balance -410 -200 -700 Intake: IV 100 1100 100 FLAGYL 500 MG/100 ML 500 100 100 mg In 100 ml @ 100 mls/hr IV Q8HR [facility] Rx#: [id number] KCL 10MEQ/100ML 10 meq In 100 100 ml @ 100 mls/hr IV Q1H [facility] Rx#:[id number] NaCl 0.9% 1000 ml 1,000 1000 ml @ 125 mls/hr IV DIRECT [facility] Rx#:[id number] Output: Urine 500 1300 800 Void 500 1300 800 Emesis 10 Other: Total, Output Amount 500 200 200 Voiding Method Toilet Toilet # Voids 1 Void 1 1 1 - Exam Breasts: Present: deferred Cardiovascular: Present: Regular rate Lungs: Present: Clear to auscultation (decreased BS (R) base. Normal BS (L), right base better than yesterday), Normal air movement Abdomen: Present: normal appearance, soft, normal bowel sounds. Absent: distention, guarding Extremities: Present: normal. Absent: tenderness, edema Incision: Present: normal, dry, intact - Labs Labs: Abnormal lab results 04/04/21 04/04/21 Range/Units 08:43 08:43 WBC 15.5 H (4.5-11.0) K/mm3 RBC 3.45 L (3.65-5.03) M/mm3 Hgb 7.8 L (10.1-14.3) gm/dl Hct 25.1 L (30.3-42.9) % MCV 73 L (79-97) fl MCH 23 L (28-32) pg RDW 24.0 H (13.2-15.2) % Seg Neuts % (Manual) 88.0 H (40.0-70.0) % Lymphocytes % (Manual) 1.0 L (13.4-35.0) % Nucleated RBC % 1.0 H (0.0-0.9) % Seg Neutrophils # Man 13.6 H (1.8-7.7) K/mm3 Lymphocytes # (Manual) 0.2 L (1.2-5.4) K/mm3 Potassium 2.5 L* D (3.6-5.0) mmol/L Chloride 95.8 L (98-107) mmol/L BUN 2 L (7-17) mg/dL Creatinine 0.5 L (0.6-1.2) mg/dL Calcium 8.1 L (8.4-10.2) mg/dL Total Protein 6.1 L (6.3-8.2) g/dL Albumin 2.7 L (3.9-5) g/dL
[2021-04-04] MEDS: FAMOTIDINE 20 MG/2 ML INJ IV SCH ×2 (14:37→21:52)
[2021-04-04] MEDS: HYDROcodone/ACETAMINOPHEN 5-325 MG TAB PO PRN (14:37)
--- NOTE | 2021-04-04 15:27 | Progress Note ---
Assessment and Plan Cultures: 03/29/2021 blood culture: One of four bottles with Bacillus Drainage cultuers: no growth so far A/P: 46-year-old female who underwent robotic hysterectomy and bilateral salpingectomy on 03/20/2021 admitted with: #Sepsis, likely secondary to left adnexal abscess: CXR without pneumonia #Bacteremia: 1 out of 4 bottles with Bacillus, likely a contaminant, no treatment needed. Recs: Continue Cefepime 2 gm q12 hr, Flagyl 500 mg q8 for now Fevers and leucocytosis may continue till there is source control/drainage If cultures remain negative tomorrow OK to DC with Levaquin 750mg q24h and metronidazole 500mg q8h for 7 further days. If positive will provide culture d irected Abx recommendations. Leah Alegria MD [facility] ([facility]) O: [phone] F: [phone] Subjective Date of service: 04/04/21 Principal diagnosis: POD#15 RALTH, POD#2 CT drainage of abscess, N/V Interval history: Afebrile, white count improving. Objective - Exam Narrative Exam: Physical Exam: Constitutional: Alert, cooperative. No acute distress Head, Ears, Nose: Normocephalic, atraumatic. Eyes: Conjunctivae/corneas clear. No icterus. No ptosis. Neck: Supple, no meningeal signs Cardiovascular: S1, S2 normal. Respiratory: Good air entry, clear to auscultation bilaterally GI: tenderness +, small incisions well healed; bowel sounds normal. No peritoneal signs Musculoskeletal: No pedal edema, no cyanosis. Skin: No rash or abscess Hem/Lymphatic: No palpable cervical or supraclavicular nodes. No lymphangitis Psych: Mood ok. Affect normal Neurological: Awake, alert, oriented. No gross abnormality - Constitutional Vitals: Vital Signs Temp Pulse Resp BP Pulse Ox 97.9 F 83 18 135/80 98 04/04/21 07:30 04/04/21 07:30 04/04/21 14:37 04/04/21 07:30 04/04/21 07:30 Temperature -Last 24 Hours Temperature 97.9 F Temperature 98.0 F Temperature 97.9 F Temperature 98.9 F Temperature 97.6 F - Labs CBC & Chem 7: 04/04/21 08:43 04/04/21 08:43 Labs: Abnormal lab results 04/04/21 04/04/21 Range/Units 08:43 08:43 WBC 15.5 H (4.5-11.0) K/mm3 RBC 3.45 L (3.65-5.03) M/mm3 Hgb 7.8 L (10.1-14.3) gm/dl Hct 25.1 L (30.3-42.9) % MCV 73 L (79-97) fl MCH 23 L (28-32) pg RDW 24.0 H (13.2-15.2) % Seg Neuts % (Manual) 88.0 H (40.0-70.0) % Lymphocytes % (Manual) 1.0 L (13.4-35.0) % Nucleated RBC % 1.0 H (0.0-0.9) % Seg Neutrophils # Man 13.6 H (1.8-7.7) K/mm3 Lymphocytes # (Manual) 0.2 L (1.2-5.4) K/mm3 Potassium 2.5 L* D (3.6-5.0) mmol/L Chloride 95.8 L (98-107) mmol/L BUN 2 L (7-17) mg/dL Creatinine 0.5 L (0.6-1.2) mg/dL Calcium 8.1 L (8.4-10.2) mg/dL Total Protein 6.1 L (6.3-8.2) g/dL Albumin 2.7 L (3.9-5) g/dL
--- NOTE | 2021-04-04 18:08 | Ultrasound Report ---
US abdomen complete INDICATION / CLINICAL INFORMATION: persistent nausea/vomiting. COMPARISON: None available. FINDINGS: Small bilateral pleural effusions are present. Small amount of sludge is seen in the gallbladder. The gallbladder wall is not thickened. Common bile duct is normal measuring 3 mm. Visualized portions of the liver, spleen, kidneys, pancreas, aorta and inferior vena cava are normal. IMPRESSION: 1. Small amount of sludge in the gallbladder without gallbladder wall thickening 2. Small bilateral pleural effusions Signer Name: Twin Abarca MD FACAisha Signed: 04/04/2021 6:03 PM Workstation Name: [id number]
[2021-04-05] MEDS: CEFEPIME/NS 2 GM/100 ML 2 GM/100 ML BAG IV SCH ×2 (01:53→15:19)
[2021-04-05] MEDS: SODIUM CHLORIDE 0.9% 1000 ML 1,000 ML IV SCH ×2 (01:53→12:08)
[2021-04-05] MEDS: metroNIDAZOLE/NS 500 MG/100 ML 500 MG/100 ML BAG IV SCH ×3 (03:23→21:23)
[2021-04-05] MEDS: ONDANSETRON 4 MG/2 ML INJ IV PRN ×2 (03:41→22:55)
[2021-04-05 09:20] LABS: Blood Urea Nitrogen 2 mg/dL (7-17); Calcium 8.3 mg/dL (8.4-10.2); Hemolysis Index 2
[2021-04-05 10:06] LABS: BUN/Creatinine Ratio 4
[2021-04-05] MEDS: FAMOTIDINE 20 MG/2 ML INJ IV SCH ×2 (12:09→21:21)
--- NOTE | 2021-04-05 13:08 | Progress Note ---
Assessment and Plan Plan of care discussed w/ patient. She voiced understanding and agrees - Patient Problems (1) Intra-abdominal abscess post-procedure Current Visit: Yes Status: Acute Plan to address problem: POD#2 s/p CT guided drainage, wound culture Gm + cocci, UC negative, BC probable contaminate Cefepime Day 5 Flagyl Day 6 (2) Febrile illness Current Visit: Yes Status: Acute (3) History of robot-assisted laparoscopic hysterectomy Current Visit: Yes Status: Acute (4) Nausea Current Visit: Yes Status: Acute Plan to address problem: With vomiting persists RUQ US sludge in gallbladder, Dr. Webb consulted NPO Patient aware of findings and plan of care (5) Anemia Current Visit: No Status: Chronic Qualifiers: Iron deficiency anemia type: chronic blood loss (6) Hypokalemia Current Visit: Yes Status: Acute Plan to address problem: IV K+ supplementation Will rechk in this evening Subjective - Subjective Date of service: 04/05/21 Principal diagnosis: POD#16 RALTH, POD#3 CT drainage of abscess, N/V Interval history: Resting in bed, still with nausea and vomiting that occurs ~twice a day. Denies vaginal drainage/discharge or bleeding. She doesn't think N/V is associated with foods, mediations or sinus drainage. Still with sharp constant (R) side pain that's been present since admission. Patient reports: flatus, appetite poor, pain poorly controlled, ambulating normally, nauseated Objective - Vital Signs Latest vital signs: Vital Signs Temp Pulse Resp BP BP Pulse Ox 04/05/21 12:33 98.7 F 89 20 152/87 100 04/05/21 09:15 98.4 F 87 20 137/87 100 04/05/21 04:35 98.6 F 88 18 134/72 100 04/05/21 00:36 98.4 F 94 H 20 119/70 100 04/04/21 19:38 98.5 F 82 20 140/80 98 04/04/21 18:06 98.1 F 75 18 136/87 99 04/04/21 14:37 18 Intake and Output 04/04/21 04/05/21 04/05/21 22:59 06:59 14:59 Intake Total 793 076 6579 Output Total 200 800 900 Balance 0 -580 160 Intake: IV 497 003 1719 FLAGYL 500 MG/100 ML 500 100 100 mg In 100 ml @ 100 mls/hr IV Q8HR [facility] Rx#: [id number] KCL 10MEQ/100ML 10 meq In 100 100 ml @ 100 mls/hr IV Q1H [facility] Rx#:[id number] NaCl 0.9% 1000 ml 1,000 1000 ml @ 125 mls/hr IV DIRECT [facility] Rx#:[id number] Oral 120 60 Output: Urine 200 800 900 Void 200 800 900 Other: Total, Intake Amount 120 60 Total, Output Amount 200 800 500 Voiding Method Toilet # Voids Void 1 - Exam Breasts: Present: deferred Abdomen: Present: normal appearance, soft, normal bowel sounds. Absent: distention Extremities: Present: normal. Absent: tenderness, edema Incision: Present: normal, dry, intact - Labs Labs: Abnormal lab results 04/05/21 Range/Units 08:36 Potassium 2.9 L* (3.6-5.0) mmol/L Chloride 95.3 L (98-107) mmol/L BUN 2 L (7-17) mg/dL Creatinine 0.5 L (0.6-1.2) mg/dL Calcium 8.3 L (8.4-10.2) mg/dL
[2021-04-05] MEDS: POTASSIUM CHLORIDE 10 MEQ 10 MEQ/100 ML BAG IV SCH ×5 (13:25→23:41)
--- NOTE | 2021-04-05 15:22 | Progress Note ---
Assessment and Plan Cultures: 03/29/2021 blood culture: One of four bottles with Bacillus Drainage cultuers: no growth so far A/P: 46-year-old female who underwent robotic hysterectomy and bilateral salpingectomy on 03/20/2021 admitted with: #Sepsis, likely secondary to left adnexal abscess: CXR without pneumonia #Bacteremia: 1 out of 4 bottles with Bacillus, likely a contaminant, no treatment needed. Recs: Continue Cefepime 2 gm q12 hr, Flagyl 500 mg q8 for now If cultures remain negative tomorrow OK to DC with Levaquin 750mg q24h and metronidazole 500mg q8h for 7 further days. If positive will provide culture directed Abx recommendations. Leah Alegria MD [facility] ([facility] O: [phone] F: [phone] Subjective Date of service: 04/05/21 Principal diagnosis: POD#16 RALTH, POD#3 CT drainage of abscess, N/V Interval history: Afebrile, no acute change. Cultures remain negative. Ongoing nausea and vomiting. Imaging personally reviewed: Abdominal ultrasound: Gallbladder sludge Objective - Exam Narrative Exam: Physical Exam: Constitutional: Alert, cooperative. No acute distress Head, Ears, Nose: Normocephalic, atraumatic. Eyes: Conjunctivae/corneas clear. No icterus. No ptosis. Neck: Supple, no meningeal signs Cardiovascular: S1, S2 normal. Respiratory: Good air entry, clear to auscultation bilaterally GI: tenderness +, small incisions well healed; bowel sounds normal. No peritoneal signs Musculoskeletal: No pedal edema, no cyanosis. Skin: No rash or abscess Hem/Lymphatic: No palpable cervical or supraclavicular nodes. No lymphangitis Psych: Mood ok. Affect normal Neurological: Awake, alert, oriented. No gross abnormality - Constitutional Vitals: Vital Signs Temp Pulse Resp BP Pulse Ox 98.7 F 89 20 152/87 100 04/05/21 12:33 04/05/21 12:33 04/05/21 12:33 04/05/21 12:33 04/05/21 12:33 Temperature -Last 24 Hours Temperature 98.7 F Temperature 98.4 F Temperature 98.6 F Temperature 98.4 F Temperature 98.5 F Temperature 98.1 F - Labs CBC & Chem 7: 04/04/21 08:43 04/05/21 08:36 Labs: Abnormal lab results 04/05/21 Range/Units 08:36 Potassium 2.9 L* (3.6-5.0) mmol/L Chloride 95.3 L (98-107) mmol/L BUN 2 L (7-17) mg/dL Creatinine 0.5 L (0.6-1.2) mg/dL Calcium 8.3 L (8.4-10.2) mg/dL
[2021-04-05] MEDS ORDERED: KETOROLAC 30 MG/1 ML INJ IV SCH (17:30)
--- NOTE | 2021-04-05 19:10 | Consultation ---
History of Present Illness Consult date: 04/05/21 Chief complaint: Nausea and vomiting - History of present illness History of present illness: 46 yo female s/p robotic assisted SANDRA on 03/20/21. She is now 3 days s/p percutaneous drainage of a left adnexal ? abscess. Now with persistent N/V and mild RLQ pain. She is passing lots of flatus. Last BM was 3 days ago. Last emesis was around 2 am today. She has a long h/o episodic, post-prandial RUQ pain which radiates to her back. This is precipitated by fatty food ingestion. She denies RUQ pain now and only c/o RLQ discomfort, nausea and vomiting. She says she is "scared to eat". Past History Past Medical History: other (endometriosis) Past Surgical History: hysterectomy (RAT on 03/20/2021), Other (BTL) Social history: single, full code Family history: other (Breast Cancer) Medications and Allergies Allergies Allergy/AdvReac Type Severity Reaction Status Date / Time No Known Allergies Allergy Verified 03/29/21 17:09 Home Medications Medication Instructions Recorded Confirmed Last Taken Type Cetirizine HCl [ZyrTEC 10mg cap] 10 mg PO DAILY 03/13/21 03/30/21 03/13/21 09:00 History Fluticasone [Flonase] 2 spray NS QDAY 03/13/21 03/30/21 03/13/21 09:00 History Docusate Sodium [Colace] 100 mg PO DAILY #30 capsule 03/21/21 03/30/21 2 Days Ago Rx ~03/28/21 2 tabs Ferrous Sulfate [Ferrous Sulfate 324 mg PO BID #90 tablet. 03/21/21 03/30/21 Unknown Rx 324 MG] Ibuprofen [Motrin 800 MG tab] 800 mg PO Q8H PRN #30 tablet 03/21/21 03/30/21 1 Day Ago Rx ~03/29/21 oxyCODONE /ACETAMINOPHEN [Percocet 1 - 2 tab PO Q6H PRN #14 tablet 03/21/21 03/30/21 Unknown Rx 5/325 mg] Active Meds: Active Medications Acetaminophen (Acetaminophen 325 Mg Tab) 650 mg PO Q6H PRN PRN Reason: Pain, Mild (1-3) Last Admin: 04/01/21 09:14 Dose: 650 mg Documented by: Hydrocodone Bitart/Acetaminophen (Hydrocodone/Acetaminophen 5-325 Mg Tab) 2 each PO Q6H PRN PRN Reason: Pain, Moderate (4-6) Last Admin: 04/04/21 14:37 Dose: 2 each Documented by: Docusate Sodium (Docusate Sodium 100 Mg Cap) 100 mg PO BID NITESH Last Admin: 04/04/21 21:52 Dose: 100 mg Documented by: Famotidine (Famotidine 20 Mg/2 Ml Inj) 20 mg IV BID NITESH Last Admin: 04/05/21 12:09 Dose: 20 mg Documented by: Guaifenesin (Guaifenesin 100 Mg/5 Ml Oral Liqd) 200 mg PO Q4H PRN PRN Reason: Cough Last Admin: 03/31/21 08:35 Dose: 200 mg Documented by: Sodium Chloride (Nacl 0.9% 1000 Ml) 1,000 mls @ 125 mls/hr IV DIRECT NITESH Last Admin: 04/05/21 12:08 Dose: 125 mls/hr Documented by: Metronidazole (Flagyl 500 Mg/100 Ml) 500 mg in 100 mls @ 100 mls/hr IV Q8HR NITESH ; Protocol Last Admin: 04/05/21 12:08 Dose: 100 mls/hr Documented by: Cefepime HCl (Cefepime/Ns 2 Gm/100 Ml) 2 gm in 100 mls @ 200 mls/hr IV Q12H NITESH; Protocol Last Admin: 04/05/21 15:19 Dose: 200 mls/hr Documented by: Ketorolac Tromethamine (Ketorolac 30 Mg/1 Ml Inj) 30 mg IV ONCE NITESH Stop: 04/05/21 20:00 Last Admin: 04/05/21 18:05 Dose: 30 mg Documented by: Magnesium Hydroxide (Magnesium Hydroxide (Mom) Oral Liqd Udc) 30 ml PO Q4H PRN PRN Reason: Constipation Metoclopramide HCl (Metoclopramide 10 Mg/2 Ml Inj) 10 mg IV Q6H PRN PRN Reason: Nausea And Vomiting Last Admin: 04/04/21 22:24 Dose: 10 mg Documented by: Ondansetron HCl (Ondansetron 4 Mg/2 Ml Inj) 4 mg IV Q8H PRN PRN Reason: Nausea And Vomiting Last Admin: 04/05/21 03:41 Dose: 4 mg Documented by: Sodium Chloride (Sodium Chloride 0.9% 10 Ml Flush Syringe) 10 ml IV BID NITESH Sodium Chloride (Sodium Chloride 0.9% 10 Ml Flush Syringe) 10 ml IV PRN PRN PRN Reason: LINE FLUSH Review of Systems All systems: negative (none) Exam Vital Signs Temp Resp BP 98.3 F 22 95/57 03/29/21 17:08 03/29/21 17:08 03/29/21 17:08 - General physical appearance Positive: well developed, well nourished, no distress - Eyes Positive: PERRL, normal occular movement - ENT Positive: normal pinna, normal nares, normal mucosa, no hearing loss, no congestion - Neck Positive: no masses, no bruits, trachea midline, no venous distension - Respiratory Positive: normal expansion, normal respiratory effort, clear to auscultation - Cardiovascular Rhythm: regular Heart Sounds: Present: S1 & S2. Absent: rub, click - Extremities Extremities: no ischemia, pulses symmetrical, No edema - Breasts Breasts: normal, no mass, no skin changes - Abdomen Abdomen: Present: soft, bowel sounds normal, other (Mildly tender in the RLQ without rebound or guarding.). Absent: distended Hernia: none - Genitourinary Male Genitourinary: normal Female Genitourinary: normal - Integumentary no rash, no growths, no abnormal pigmentation - Neurologic Neurologic: alert and oriented to time, place and person, motor strength and sensation are grossly intact - Musculoskeletal normal gait, normal posture - Psychiatric Psychiatric: appropriate mood/affect, intact judgment & insight Results - Labs 04/04/21 08:43 04/05/21 08:36 Abnormal lab results 04/05/21 Range/Units 08:36 Potassium 2.9 L* (3.6-5.0) mmol/L Chloride 95.3 L (98-107) mmol/L BUN 2 L (7-17) mg/dL Creatinine 0.5 L (0.6-1.2) mg/dL Calcium 8.3 L (8.4-10.2) mg/dL Diabetes panel 04/05/21 Range/Units 08:36 Sodium 137 (137-145) mmol/L Potassium 2.9 L* (3.6-5.0) mmol/L Chloride 95.3 L (98-107) mmol/L Carbon Dioxide 29 (22-30) mmol/L BUN 2 L (7-17) mg/dL Creatinine 0.5 L (0.6-1.2) mg/dL Glucose 80 (65-100) mg/dL Calcium 8.3 L (8.4-10.2) mg/dL Calcium panel 04/05/21 Range/Units 08:36 Calcium 8.3 L (8.4-10.2) mg/dL Pituitary panel 04/05/21 Range/Units 08:36 Sodium 137 (137-145) mmol/L Potassium 2.9 L* (3.6-5.0) mmol/L Chloride 95.3 L (98-107) mmol/L Carbon Dioxide 29 (22-30) mmol/L BUN 2 L (7-17) mg/dL Creatinine 0.5 L (0.6-1.2) mg/dL Glucose 80 (65-100) mg/dL Calcium 8.3 L (8.4-10.2) mg/dL Adrenal panel 04/05/21 Range/Units 08:36 Sodium 137 (137-145) mmol/L Potassium 2.9 L* (3.6-5.0) mmol/L Chloride 95.3 L (98-107) mmol/L Carbon Dioxide 29 (22-30) mmol/L BUN 2 L (7-17) mg/dL Creatinine 0.5 L (0.6-1.2) mg/dL Glucose 80 (65-100) mg/dL Calcium 8.3 L (8.4-10.2) mg/dL - Imaging CT scan - abdomen: report reviewed CT scan - pelvis: report reviewed US - abdomen: report reviewed Assessment and Plan - Patient Problems (1) Nausea Current Visit: Yes Status: Acute Plan to address problem: 1) I believe pt's current symptoms are secondary to paralytic ileus. She also has a h/o chronic cholecystitis but I do not believe her N/V are secondary to acute gallbladder disease. Her ileus could be secondary to her hypokalemia, abdominal inflammatory process, IV narcotics among others. I would continue her current IV antibiotics for now. I will order a CBC, BMP, TSH, Mg, Hida scan and AXR in the am. Repeat CT of abdomen and pelvis may be necessary if she does not improve. Pt was encouraged to ambulate as much as she can. She will ask for pain medications only if absolutely necessary. Will give her sips of clears tonight but NPO after MN for the Hida scan. Will schedule elective lap layla in 4-6 weeks if her condition permits.
[2021-04-05] MEDS: HYDROcodone/ACETAMINOPHEN 5-325 MG TAB PO PRN (21:30)
[2021-04-05] MEDS: DOCUSATE SODIUM 100 MG CAP PO SCH (22:00)
[2021-04-06] MEDS: POTASSIUM CHLORIDE 10 MEQ 10 MEQ/100 ML BAG IV SCH (01:27)
[2021-04-06] MEDS: CEFEPIME/NS 2 GM/100 ML 2 GM/100 ML BAG IV SCH ×2 (04:26→16:03)
[2021-04-06] MEDS: metroNIDAZOLE/NS 500 MG/100 ML 500 MG/100 ML BAG IV SCH ×2 (06:47→23:04)
[2021-04-06] MEDS ORDERED: KETOROLAC 30 MG/1 ML INJ IV SCH (08:30)
[2021-04-06 09:45] LABS: Hematocrit 25.3 % (30.3-42.9); Hemoglobin 7.8 gm/dl (10.1-14.3); Mean Corpuscular HGB Conc 31 % (30-34); Mean Corpuscular Volume 73 fl (79-97); Platelet Count 483 K/mm3 (140-440); Red Blood Count 3.44 M/mm3 (3.65-5.03)
[2021-04-06 09:48] LABS: Red Cell Distribution Width 24.6 % (13.2-15.2)
[2021-04-06 09:51] LABS: Blood Urea Nitrogen 3 mg/dL (7-17); Calcium 8.4 mg/dL (8.4-10.2); Hemolysis Index 0
[2021-04-06 10:15] LABS: BUN/Creatinine Ratio 6
--- NOTE | 2021-04-06 11:57 | XRay Report ---
ABDOMEN 2 VIEW(S) INDICATION / CLINICAL INFORMATION: Nausea and vomiting. COMPARISON: None available. FINDINGS: TUBES / LINES: None. BOWEL GAS PATTERN: No significant abnormality. FREE AIR / EXTRALUMINAL GAS: None seen. ADDITIONAL FINDINGS: No significant additional findings. IMPRESSION: No significant abnormality. Signer Name: Adriel Winter Jr, MD Signed: 04/06/2021 11:53 AM Workstation Name: [id number]
[2021-04-06 12:17] LABS: Total Cells Counted 100
[2021-04-06 12:18] LABS: Anisocytosis 2+; Giant Platelets Rare; Hypochromasia 1+; Platelet Estimate Consistent w Auto; Tear Drop Cells Rare
[2021-04-06] MEDS ORDERED: POTASSIUM CHLORIDE 10 MEQ 10 MEQ/100 ML BAG IV SCH (13:00)
--- NOTE | 2021-04-06 14:46 | Progress Note ---
Assessment and Plan Cultures: 03/29/2021 blood culture: One of four bottles with Bacillus Drainage cultuers: no growth so far A/P: 46-year-old female who underwent robotic hysterectomy and bilateral salpingectomy on 03/20/2021 admitted with: #Sepsis, likely secondary to left adnexal abscess: CXR without pneumonia #Bacteremia: 1 out of 4 bottles with Bacillus, likely a contaminant, no treatment needed. #N/V: with gallbladder sludge, pending HIDA scan. Possible future outpatient cholecystectomy. Recs: Continue Cefepime 2 gm q12 hr, Flagyl 500 mg q8 for now As her white count remains persistent I would recommend a repeat CT abdo/pelvis with contrast to evaluate for persistent abscess. Would co-ordinate with Dr. Webb if he prefers if sooner or in a day or two. Follow up HIDA scan We will follow. Dr. Luz covering this weekend, Dr. Mcdonald taking over Friday Leah Alegria MD [facility] ([facility]) O: [phone] F: [phone] Subjective Date of service: 04/06/21 Principal diagnosis: POD#16 RALTH, POD#3 CT drainage of abscess, N/V Interval history: 1x fever of 100.4 yesterday, otherwise totally afebrile. White count remains elevated, 16.6. Ongoing N/V Objective - Exam Narrative Exam: Physical Exam: Constitutional: Alert, cooperative. No acute distress Head, Ears, Nose: Normocephalic, atraumatic. Eyes: Conjunctivae/corneas clear. No icterus. No ptosis. Neck: Supple, no meningeal signs Cardiovascular: S1, S2 normal. Respiratory: Good air entry, clear to auscultation bilaterally GI: tenderness +, small incisions well healed; bowel sounds normal. No peritoneal signs Musculoskeletal: No pedal edema, no cyanosis. Skin: No rash or abscess Hem/Lymphatic: No palpable cervical or supraclavicular nodes. Psych: Mood ok. Affect normal Neurological: Awake, alert, oriented. No gross abnormality - Constitutional Vitals: Vital Signs Temp Pulse Resp BP Pulse Ox 98.2 F 89 15 132/82 98 04/06/21 08:00 04/06/21 08:00 04/06/21 08:00 04/06/21 08:00 04/06/21 08:00 Temperature -Last 24 Hours Temperature 98.2 F Temperature 98.5 F Temperature 98.0 F Temperature 98.2 F Temperature 100.4 F - Labs CBC & Chem 7: 04/06/21 07:56 04/06/21 07:56 Labs: Abnormal lab results 04/06/21 04/06/21 Range/Units 07:56 07:56 WBC 16.6 H (4.5-11.0) K/mm3 RBC 3.44 L (3.65-5.03) M/mm3 Hgb 7.8 L (10.1-14.3) gm/dl Hct 25.3 L (30.3-42.9) % MCV 73 L (79-97) fl MCH 23 L (28-32) pg RDW 24.6 H (13.2-15.2) % Plt Count 483 H (140-440) K/mm3 Seg Neuts % (Manual) 93.0 H (40.0-70.0) % Lymphocytes % (Manual) 1.0 L (13.4-35.0) % Seg Neutrophils # Man 15.4 H (1.8-7.7) K/mm3 Lymphocytes # (Manual) 0.2 L (1.2-5.4) K/mm3 Monocytes # (Manual) 1.0 H (0.0-0.8) K/mm3 Sodium 134 L (137-145) mmol/L Potassium 3.0 L (3.6-5.0) mmol/L Chloride 94.3 L (98-107) mmol/L BUN 3 L (7-17) mg/dL Creatinine 0.5 L (0.6-1.2) mg/dL Magnesium 1.50 L (1.7-2.3) mg/dL
--- NOTE | 2021-04-06 15:27 | Nuclear Medicine Report ---
NUCLEAR MEDICINE HEPATOBILIARY SCAN INDICATION: nausea vomiting; +sludge on RUQ US. TECHNIQUE: Radiotracer: Tc-99m mebrofenin (by IV): 5.2 mCi. COMPARISON: Abdominal ultrasound 2 days prior. FINDINGS: Hepatic activity: There is moderate persistent activity out to 30 minutes. Biliary activity: Normal. Common bile duct activity at 20 minutes. Gallbladder activity: No activity is seen out to 2 hours. Small bowel activity: Normal at 30 minutes. IMPRESSION: 1. There is mildly delayed hepatocellular excretion of radiotracer with persistent hepatic activity a t 30 minutes. Correlate clinically for hepatocellular dysfunction. 2. Nonfilling of the gallbladder. While this can be seen in the setting of acute cholecystitis, pleas e confirm clinically the patient has been n.p.o. for greater than 4 but less than 24 hours which coul d result in false positive. Signer Name: Thomas Romero MD Signed: 04/06/2021 3:23 PM Workstation Name: [id number]
--- NOTE | 2021-04-06 15:40 | Progress Note ---
Assessment and Plan - Patient Problems (1) Nausea Current Visit: Yes Status: Acute Plan to address problem: 1) Pt appears to be improving. Despite her Hida result, I doubt her presentation is secondary to acute cholecystitis. Discussed with Dr. Gil of ID. He is ordering a f/u CT abdomen and pelvis with which I agree. 2) CBC, CMP and Mg in the am 3) CLD 4) MagOx, 400 mg po bid 5) K+ replenishment per Dr. Walls's orders. Subjective Date of service: 04/06/21 Patient Reports: Positive: no new complaints, feels better, pain is less (Had "very small" emesis around 1 am.), flatus, no bowel movement Objective Vital Signs - 12hr 04/06/21 04/06/21 06:45 08:00 Temperature 98.5 F 98.2 F Pulse Rate 83 89 Respiratory 15 Rate Blood Pressure 135/77 Blood Pressure 132/82 [Right] O2 Sat by Pulse 96 98 Oximetry - Abdomen other (No change in abd exam.) - Labs 04/06/21 07:56 04/06/21 07:56 Diabetes panel 04/06/21 Range/Units 07:56 Sodium 134 L (137-145) mmol/L Potassium 3.0 L (3.6-5.0) mmol/L Chloride 94.3 L (98-107) mmol/L Carbon Dioxide 26 (22-30) mmol/L BUN 3 L (7-17) mg/dL Creatinine 0.5 L (0.6-1.2) mg/dL Glucose 77 (65-100) mg/dL Calcium 8.4 (8.4-10.2) mg/dL Thyroid panel 04/06/21 Range/Units 07:56 TSH 2.720 (0.270-4.200) mlU/mL Calcium panel 04/06/21 Range/Units 07:56 Calcium 8.4 (8.4-10.2) mg/dL Pituitary panel 04/06/21 04/06/21 Range/Units 07:56 07:56 Sodium 134 L (137-145) mmol/L Potassium 3.0 L (3.6-5.0) mmol/L Chloride 94.3 L (98-107) mmol/L Carbon Dioxide 26 (22-30) mmol/L BUN 3 L (7-17) mg/dL Creatinine 0.5 L (0.6-1.2) mg/dL Glucose 77 (65-100) mg/dL Calcium 8.4 (8.4-10.2) mg/dL TSH 2.720 (0.270-4.200) mlU/mL Adrenal panel 04/06/21 Range/Units 07:56 Sodium 134 L (137-145) mmol/L Potassium 3.0 L (3.6-5.0) mmol/L Chloride 94.3 L (98-107) mmol/L Carbon Dioxide 26 (22-30) mmol/L BUN 3 L (7-17) mg/dL Creatinine 0.5 L (0.6-1.2) mg/dL Glucose 77 (65-100) mg/dL Calcium 8.4 (8.4-10.2) mg/dL Mg 1.5 - Imaging Abdominal x-ray: report reviewed Additional Studies: Hida scan report reviewed.
--- NOTE | 2021-04-06 19:06 | Progress Note ---
Assessment and Plan - Patient Problems (1) Abdominal pain Current Visit: Yes Status: Acute Qualifiers: Abdominal location: generalized Qualified Code(s): R10.84 - Generalized abdominal pain Plan to address problem: Uncertain etiology, feels better Will continue clears for now IV infiltrated, she has not had any K+ supplementation today. Since she's tolerating clears will hold K+ for now and check in am. NPO after MN for CT scan tomorrow Continue IV antibiotics Appreciate ID and surgery assistance (2) Intra-abdominal abscess post-procedure Current Visit: Yes Status: Acute (3) Febrile illness Current Visit: Yes Status: Acute Plan to address problem: Low grade fever yesterday, now afebrile for > 24hours. (4) History of robot-assisted laparoscopic hysterectomy Current Visit: Yes Status: Acute (5) Nausea Current Visit: Yes Status: Acute (6) Anemia Current Visit: No Status: Chronic Qualifiers: Iron deficiency anemia type: chronic blood loss Plan to address problem: stable (7) Hypokalemia Current Visit: Yes Status: Acute Subjective - Subjective Date of service: 04/06/21 Principal diagnosis: POD#17 RALTH, POD#4 CT drainage of abscess, N/V Interval history: Resting in bed, feels better. Still RLQ pain but now tolerating liquids, no vomiting today. Denies vaginal drainage/discharge or bleeding. Patient reports: flatus Objective - Vital Signs Latest vital signs: Vital Signs Temp Pulse Resp BP BP BP Pulse Ox 04/06/21 16:00 98.4 F 87 14 147/85 99 04/06/21 08:00 98.2 F 89 15 132/82 98 04/06/21 06:45 98.5 F 83 135/77 96 04/06/21 01:16 98.0 F 78 18 143/87 100 04/05/21 20:47 98.2 F 78 20 149/81 100 Intake and Output 04/06/21 04/06/21 04/06/21 06:59 14:59 22:59 Intake Total 200 10 Output Total 600 Balance -400 10 Intake: IV 200 10 CEFEPIME/NS 2 GM/100 ML 2 100 gm In 100 ml @ 200 mls/ hr IV Q12H NITESH Rx#: [id number] KCL 10MEQ/100ML 10 meq In 100 100 ml @ 100 mls/hr IV Q1H NITESH Rx#:[id number] Right Forearm 10 Output: Urine 600 Void 600 Other: Total, Output Amount 600 Voiding Method Toilet - Exam Breasts: Present: deferred Lungs: Present: Normal air movement Abdomen: Present: soft - Labs Labs: Abnormal lab results 04/06/21 04/06/21 Range/Units 07:56 07:56 WBC 16.6 H (4.5-11.0) K/mm3 RBC 3.44 L (3.65-5.03) M/mm3 Hgb 7.8 L (10.1-14.3) gm/dl Hct 25.3 L (30.3-42.9) % MCV 73 L (79-97) fl MCH 23 L (28-32) pg RDW 24.6 H (13.2-15.2) % Plt Count 483 H (140-440) K/mm3 Seg Neuts % (Manual) 93.0 H (40.0-70.0) % Lymphocytes % (Manual) 1.0 L (13.4-35.0) % Seg Neutrophils # Man 15.4 H (1.8-7.7) K/mm3 Lymphocytes # (Manual) 0.2 L (1.2-5.4) K/mm3 Monocytes # (Manual) 1.0 H (0.0-0.8) K/mm3 Sodium 134 L (137-145) mmol/L Potassium 3.0 L (3.6-5.0) mmol/L Chloride 94.3 L (98-107) mmol/L BUN 3 L (7-17) mg/dL Creatinine 0.5 L (0.6-1.2) mg/dL Magnesium 1.50 L (1.7-2.3) mg/dL
[2021-04-06] MEDS: DOCUSATE SODIUM 100 MG CAP PO SCH (22:04)
[2021-04-06] MEDS: MAGNESIUM OXIDE 400 MG TAB PO SCH (23:03)
[2021-04-06] MEDS: FAMOTIDINE 20 MG/2 ML INJ IV SCH (23:04)
[2021-04-07] MEDS: CEFEPIME/NS 2 GM/100 ML 2 GM/100 ML BAG IV SCH ×3 (02:00→14:20)
[2021-04-07 06:30] LABS: Basophils % (Auto) 0.2 % (0.0-1.8); Eosinophils # (Auto) 0.1 K/mm3 (0.0-0.4); Eosinophils % (Auto) 0.5 % (0.0-4.3); Hemoglobin 8.3 gm/dl (10.1-14.3); Lymphocytes # (Auto) 1.4 K/mm3 (1.2-5.4); Lymphocytes % (Auto) 9.1 % (13.4-35.0); Mean Corpuscular HGB Conc 32 % (30-34); Mean Corpuscular Volume 74 fl (79-97); Monocytes # (Auto) 1.4 K/mm3 (0.0-0.8); Monocytes % (Auto) 9.5 % (0.0-7.3); Platelet Count 520 K/mm3 (140-440); Red Blood Count 3.51 M/mm3 (3.65-5.03); Red Cell Distribution Width 24.5 % (13.2-15.2)
[2021-04-07 06:49] LABS: Alanine Aminotransferase 6 units/L (7-56); Blood Urea Nitrogen 4 mg/dL (7-17); Calcium 8.3 mg/dL (8.4-10.2); Hemolysis Index 0
[2021-04-07 06:52] LABS: BUN/Creatinine Ratio 8
--- NOTE | 2021-04-07 07:06 | Progress Note ---
Assessment and Plan - Patient Problems (1) Abdominal pain Current Visit: Yes Status: Acute Qualifiers: Abdominal location: right lower quadrant Qualified Code(s): R10.31 - Right lower quadrant pain Plan to address problem: Uncertain etiology, feels better Will continue clears for now Scheduled for CT scan today Continue IV antibiotics Appreciate ID and surgery assistance (2) Intra-abdominal abscess post-procedure Current Visit: Yes Status: Acute Plan to address problem: POD#5 s/p CT guided drainage, wound culture Gm + cocci, UC negative, BC probable contaminate No fever >24hours Cefepime Day 5 Flagyl Day 8 (3) Febrile illness Current Visit: Yes Status: Acute Plan to address problem: Now afebrile >24hours (4) History of robot-assisted laparoscopic hysterectomy Current Visit: Yes Status: Acute Plan to address problem: POD#119 no bleeding or vaginal drainage (5) Nausea Current Visit: Yes Status: Acute Plan to address problem: No vomiting yesterday, desires to advance diet. Will restart Clear liquids after CT scan completed Gallbladder sludge on RUQ (6) Anemia Current Visit: No Status: Chronic Qualifiers: Iron deficiency anemia type: chronic blood loss Plan to address problem: stable (7) Hypokalemia Current Visit: Yes Status: Acute Plan to address problem: K+ supplementation Will rechk in am Subjective - Subjective Date of service: 04/07/21 Principal diagnosis: POD#18 RALTH, POD#5 CT drainage of abscess, N/V Interval history: Resting in bed, feels better. Now tolerating liquids, no vomiting yesterday. States she has an appetite. Denies vaginal drainage/discharge or bleeding. Patient reports: flatus, ambulating normally Objective - Vital Signs Latest vital signs: Vital Signs Temp Pulse Resp BP BP BP Pulse Ox 04/07/21 01:24 98.7 F 93 H 18 116/54 97 04/06/21 21:10 98.3 F 94 H 16 147/86 99 04/06/21 17:10 16 147/85 04/06/21 16:00 98.4 F 87 14 147/85 99 04/06/21 09:08 86 16 132/82 98 04/06/21 08:00 98.2 F 89 15 132/82 98 Intake and Output 04/06/21 04/07/21 04/07/21 22:59 06:59 14:59 Intake Total 100 360 Output Total 800 900 Balance -700 -540 Intake: IV 100 CEFEPIME/NS 2 GM/100 ML 2 100 gm In 100 ml @ 200 mls/ hr IV Q12H [facility] Rx#: [id number] Intake, Free Water 360 Output: Urine 800 900 Void 800 900 Other: Total, Output Amount 300 900 # Voids Void 1 3 - Exam Breasts: Present: deferred Cardiovascular: Present: Regular rate Lungs: Present: Clear to auscultation, Normal air movement Abdomen: Present: normal appearance, soft, normal bowel sounds. Absent: distention, guarding Extremities: Present: normal. Absent: tenderness, edema Incision: Present: normal, dry, intact - Labs Labs: Abnormal lab results 04/06/21 04/06/21 04/07/21 Range/Units 07:56 07:56 05:39 WBC 16.6 H 14.9 H (4.5-11.0) K/mm3 RBC 3.44 L 3.51 L (3.65-5.03) M/mm3 Hgb 7.8 L 8.3 L (10.1-14.3) gm/dl Hct 25.3 L 26.0 L (30.3-42.9) % MCV 73 L 74 L (79-97) fl MCH 23 L 24 L (28-32) pg RDW 24.6 H 24.5 H (13.2-15.2) % Plt Count 483 H 520 H (140-440) K/mm3 Lymph % (Auto) 9.1 L (13.4-35.0) % [place] % (Auto) 9.5 H (0.0-7.3) % [place] # (Auto) 1.4 H (0.0-0.8) K/mm3 Seg Neutrophils % 80.7 H (40.0-70.0) % Seg Neuts % (Manual) 93.0 H (40.0-70.0) % Lymphocytes % (Manual) 1.0 L (13.4-35.0) % Seg Neutrophils # 12.0 H (1.8-7.7) K/mm3 Seg Neutrophils # Man 15.4 H (1.8-7.7) K/mm3 Lymphocytes # (Manual) 0.2 L (1.2-5.4) K/mm3 Monocytes # (Manual) 1.0 H (0.0-0.8) K/mm3 Sodium 134 L (137-145) mmol/L Potassium 3.0 L (3.6-5.0) mmol/L Chloride 94.3 L (98-107) mmol/L BUN 3 L (7-17) mg/dL Creatinine 0.5 L (0.6-1.2) mg/dL Calcium (8.4-10.2) mg/dL Magnesium 1.50 L (1.7-2.3) mg/dL ALT (7-56) units/L Albumin (3.9-5) g/dL 04/07/21 Range/Units 05:39 WBC (4.5-11.0) K/mm3 RBC (3.65-5.03) M/mm3 Hgb (10.1-14.3) gm/dl Hct (30.3-42.9) % MCV (79-97) fl MCH (28-32) pg RDW (13.2-15.2) % Plt Count (140-440) K/mm3 Lymph % (Auto) (13.4-35.0) % [place] % (Auto) (0.0-7.3) % [place] # (Auto) (0.0-0.8) K/mm3 Seg Neutrophils % (40.0-70.0) % Seg Neuts % (Manual) (40.0-70.0) % Lymphocytes % (Manual) (13.4-35.0) % Seg Neutrophils # (1.8-7.7) K/mm3 Seg Neutrophils # Man (1.8-7.7) K/mm3 Lymphocytes # (Manual) (1.2-5.4) K/mm3 Monocytes # (Manual) (0.0-0.8) K/mm3 Sodium 136 L (137-145) mmol/L Potassium 2.9 L* (3.6-5.0) mmol/L Chloride 93.9 L (98-107) mmol/L BUN 4 L (7-17) mg/dL Creatinine 0.5 L (0.6-1.2) mg/dL Calcium 8.3 L (8.4-10.2) mg/dL Magnesium 1.60 L (1.7-2.3) mg/dL ALT 6 L (7-56) units/L Albumin 3.0 L (3.9-5) g/dL
[2021-04-07] MEDS: metroNIDAZOLE/NS 500 MG/100 ML 500 MG/100 ML BAG IV SCH ×2 (08:00→20:30)
--- NOTE | 2021-04-07 08:26 | Cat Scan Report ---
CT abdomen pelvis w con INDICATION / CLINICAL INFORMATION: Eval for residual abscess OMNI 300 100 ML. TECHNIQUE: Axial CT images were obtained through the abdomen and pelvis after IV contrast. All CT sc ans at this location are performed using CT dose reduction for ALARA by means of automated exposure c ontrol. COMPARISON: CT from 04/01/2021. FINDINGS: Bibasilar pleural effusions are unchanged. Liver, gallbladder, pancreas, spleen, adrenals, kidneys an d bladder are unremarkable. There is improved inflammation of the left aspect of the pelvis with decr eased size of rim-enhancing multiloculated collection. Largest component of the collection is present along the left pelvic sidewall measuring 2.6 x 2.4 cm (series 2 image 135). No bowel obstruction or inflammation. No other interval change. IMPRESSION: Improved inflammatory changes of the pelvis with improved left pelvic abscess. Small multiloculated c ollection persists. Signer Name: Jayden Kaur MD Signed: 04/07/2021 8:21 AM Workstation Name: [id number]
[2021-04-07] MEDS: PROMETHAZINE 25 MG TAB PO SCH ×2 (09:50→21:42)
[2021-04-07] MEDS: POTASSIUM CHLORIDE ER 20 MEQ TAB PO SCH ×2 (09:50→23:45)
[2021-04-07] MEDS: FAMOTIDINE 20 MG/2 ML INJ IV SCH ×2 (09:50→23:45)
[2021-04-07] MEDS: MAGNESIUM OXIDE 400 MG TAB PO SCH (09:50)
[2021-04-07] MEDS: DOCUSATE SODIUM 100 MG CAP PO SCH ×2 (09:50→21:42)
[2021-04-07] MEDS: ACETAMINOPHEN 325 MG TAB PO PRN (10:15)
--- NOTE | 2021-04-07 14:08 | Progress Note ---
Assessment and Plan Cultures: 03/29/2021 blood culture: One of four bottles with Bacillus Drainage cultures 04/02/2021: no growth so far A/P: 46-year-old female who underwent robotic hysterectomy and bilateral salpingectomy on 03/20/2021 admitted with: #Sepsis: likely secondary to left adnexal abscess. Leukocytosis improving. #Left pelvic abscess: Repeat CT with improving inflammatory changes. Small multiloculated collection 2.6 x 2.4 cm remains. #Bacteremia: 1 out of 4 bottles with Bacillus, likely a contaminant, no treat ment needed. #N/V: with gallbladder sludge, HIDA scan reviewed. Recs: -Continue Cefepime 2 gm q12 hr, Flagyl 500 mg q8 for now -Follow-up drainage cultures -Monitor leukocytosis -If clinically improving okay to discharge on Levaquin 750 mg p.o. once a day and Flagyl 500 mg p.o. 3 times daily total 7 days since drainage -ID clinic follow-up Mi Luz MD [facility] ([facility]) Office [phone] Subjective Date of service: 04/07/21 Principal diagnosis: POD#18 RALTH, POD#5 CT drainage of abscess, N/V Interval history: Patient feels better, reports pelvic pain. No fever. Objective - Exam Narrative Exam: General appearance: Alert in NAD pleasant Eyes: anicteric sclerae, moist conjunctivae; no lid-lag; PERRLA HENT: Normocephalic, Atraumatic; normal external ears, nares open, oropharynx clear Neck: supple, tracheal midline, no JVD Lungs: CTA, with normal respiratory effort and no intercostal retractions CV: RRR no murmur Abdomen: Soft, mild tenderness, surgical laparoscopic wounds clean Extremities: no edema, no cyanosis Skin: No rash. Psych: no agitated Neuro: alert and oriented x 3. Moving all extermities - Constitutional Vitals: Vital Signs Temp Pulse Resp BP Pulse Ox 98.0 F 85 17 122/69 99 04/07/21 08:00 04/07/21 08:00 04/07/21 08:00 04/07/21 08:00 04/07/21 08:00 Temperature -Last 24 Hours Temperature 98.0 F Temperature 99.0 F Temperature 98.7 F Temperature 98.3 F Temperature 98.4 F - Labs CBC & Chem 7: 04/07/21 05:39 04/07/21 05:39 Labs: Abnormal lab results 04/07/21 04/07/21 Range/Units 05:39 05:39 WBC 14.9 H (4.5-11.0) K/mm3 RBC 3.51 L (3.65-5.03) M/mm3 Hgb 8.3 L (10.1-14.3) gm/dl Hct 26.0 L (30.3-42.9) % MCV 74 L (79-97) fl MCH 24 L (28-32) pg RDW 24.5 H (13.2-15.2) % Plt Count 520 H (140-440) K/mm3 Lymph % (Auto) 9.1 L (13.4-35.0) % [place] % (Auto) 9.5 H (0.0-7.3) % [place] # (Auto) 1.4 H (0.0-0.8) K/mm3 Seg Neutrophils % 80.7 H (40.0-70.0) % Seg Neutrophils # 12.0 H (1.8-7.7) K/mm3 Sodium 136 L (137-145) mmol/L Potassium 2.9 L* (3.6-5.0) mmol/L Chloride 93.9 L (98-107) mmol/L BUN 4 L (7-17) mg/dL Creatinine 0.5 L (0.6-1.2) mg/dL Calcium 8.3 L (8.4-10.2) mg/dL Magnesium 1.60 L (1.7-2.3) mg/dL ALT 6 L (7-56) units/L Albumin 3.0 L (3.9-5) g/dL
--- NOTE | 2021-04-07 15:02 | Event Note ---
Date: 04/07/21 CT shows improvement of abscess. Will con't current managment. As per Dr. Walls will allow for clear liquid diet at this time.
--- NOTE | 2021-04-07 16:48 | Progress Note ---
Assessment and Plan - Patient Problems (1) Nausea Current Visit: Yes Status: Acute Plan to address problem: 1) FLD 2) CBC, BMP and Mg in the am 3) Continue replacing K+ Subjective Date of service: 04/07/21 Patient Reports: Positive: no new complaints, feels better, pain is less, tole rating liquids well, flatus, no bowel movement Objective Vital Signs - 12hr 04/07/21 04/07/21 04/07/21 08:00 10:15 15:47 Temperature 98.0 F 97.9 F Pulse Rate 85 82 Respiratory 17 18 18 Rate Blood Pressure 122/69 109/63 [Right] O2 Sat by Pulse 99 97 Oximetry - Abdomen PM_46_EXABD1 4, PM_46_EXABD1 6, PM_46_EXABD1 8 Hernia: none - Labs 04/07/21 05:39 04/07/21 05:39 Diabetes panel 04/07/21 Range/Units 05:39 Sodium 136 L (137-145) mmol/L Potassium 2.9 L* (3.6-5.0) mmol/L Chloride 93.9 L (98-107) mmol/L Carbon Dioxide 29 (22-30) mmol/L BUN 4 L (7-17) mg/dL Creatinine 0.5 L (0.6-1.2) mg/dL Glucose 79 (65-100) mg/dL Calcium 8.3 L (8.4-10.2) mg/dL AST 13 (5-40) units/L ALT 6 L (7-56) units/L Alkaline Phosphatase 80 (35-129) units/L Total Protein 6.6 (6.3-8.2) g/dL Albumin 3.0 L (3.9-5) g/dL Calcium panel 04/07/21 Range/Units 05:39 Calcium 8.3 L (8.4-10.2) mg/dL Albumin 3.0 L (3.9-5) g/dL Pituitary panel 04/07/21 Range/Units 05:39 Sodium 136 L (137-145) mmol/L Potassium 2.9 L* (3.6-5.0) mmol/L Chloride 93.9 L (98-107) mmol/L Carbon Dioxide 29 (22-30) mmol/L BUN 4 L (7-17) mg/dL Creatinine 0.5 L (0.6-1.2) mg/dL Glucose 79 (65-100) mg/dL Calcium 8.3 L (8.4-10.2) mg/dL Adrenal panel 04/07/21 Range/Units 05:39 Sodium 136 L (137-145) mmol/L Potassium 2.9 L* (3.6-5.0) mmol/L Chloride 93.9 L (98-107) mmol/L Carbon Dioxide 29 (22-30) mmol/L BUN 4 L (7-17) mg/dL Creatinine 0.5 L (0.6-1.2) mg/dL Glucose 79 (65-100) mg/dL Calcium 8.3 L (8.4-10.2) mg/dL Total Bilirubin 0.30 (0.1-1.2) mg/dL AST 13 (5-40) units/L ALT 6 L (7-56) units/L Alkaline Phosphatase 80 (35-129) units/L Total Protein 6.6 (6.3-8.2) g/dL Albumin 3.0 L (3.9-5) g/dL - Imaging CT scan - abdomen: report reviewed CT scan - pelvis: report reviewed
[2021-04-08] MEDS: CEFEPIME/NS 2 GM/100 ML 2 GM/100 ML BAG IV SCH (01:50)
[2021-04-08] MEDS: metroNIDAZOLE/NS 500 MG/100 ML 500 MG/100 ML BAG IV SCH ×2 (02:51→10:39)
[2021-04-08] MEDS: METOCLOPRAMIDE 10 MG/2 ML INJ IV PRN (05:22)
[2021-04-08 07:32] LABS: Basophils % (Auto) 0.2 % (0.0-1.8); Eosinophils # (Auto) 0.1 K/mm3 (0.0-0.4); Eosinophils % (Auto) 0.5 % (0.0-4.3); Hematocrit 26.1 % (30.3-42.9); Hemoglobin 8.3 gm/dl (10.1-14.3); Lymphocytes # (Auto) 1.1 K/mm3 (1.2-5.4); Mean Corpuscular HGB Conc 32 % (30-34); Mean Corpuscular Volume 74 fl (79-97); Monocytes # (Auto) 1.3 K/mm3 (0.0-0.8); Monocytes % (Auto) 9.6 % (0.0-7.3); Platelet Count 544 K/mm3 (140-440); Red Blood Count 3.52 M/mm3 (3.65-5.03)
[2021-04-08 07:45] LABS: Red Cell Distribution Width 24.7 % (13.2-15.2)
[2021-04-08 07:49] LABS: Blood Urea Nitrogen 4 mg/dL (7-17); Calcium 8.8 mg/dL (8.4-10.2); Hemolysis Index 0
[2021-04-08 07:54] LABS: BUN/Creatinine Ratio 8
[2021-04-08] MEDS: DOCUSATE SODIUM 100 MG CAP PO SCH ×2 (10:34→22:23)
[2021-04-08] MEDS: MAGNESIUM OXIDE 400 MG TAB PO SCH (10:34)
[2021-04-08] MEDS: FAMOTIDINE 20 MG/2 ML INJ IV SCH ×2 (10:35→22:23)
--- NOTE | 2021-04-08 12:52 | Progress Note ---
Assessment and Plan - Patient Problems (1) H/O abdominal surgery Current Visit: Yes Status: Acute (2) History of robot-assisted laparoscopic hysterectomy Current Visit: Yes Status: Acute (3) Intra-abdominal abscess Current Visit: Yes Status: Acute Plan to address problem: -will transition to po antibx at this time with next dose of meds (4) Sepsis Current Visit: Yes Status: Acute Qualifiers: Sepsis type: sepsis due to unspecified organism Sepsis acute organ dysfunction status: without acute organ dysfunction Qualified Code(s): A41.9 - Sepsis, unspecified organism Plan to address problem: -currently afebrile. Will con't antibx at this time (5) Hypokalemia Current Visit: Yes Status: Acute Plan to address problem: -will replace po today -currently 3.4 -will repeat cmp in the am (6) Intra-abdominal abscess post-procedure Current Visit: Yes Status: Acute Plan to address problem: -cont antibx -will change to po meds in prep for d/c planning Subjective - Subjective Date of service: 04/08/21 Principal diagnosis: POD#19 RALTH, POD#6 CT drainage of abscess, N/V Interval history: Pt states she had no emesis after starting full liquids on last night but had an episode of emesis at 0400 this am that was yellowish in color and did not seem to be the food she had eaten. States prior to this she had no emesis. She had grits and pudding this am and has not had any ememsis and does not c/o of nausea at this time. She does c/o feeling some soreness in abdomen and RUQ discomfort. She other tamayo states her pain is well controlled and she is feeling better just ready to go home. No fevers or chills. Patient reports: appetite normal, voiding normally, pain well controlled, ambulating normally, no dizzy ambulation, no nauseated Objective - Vital Signs Latest vital signs: Vital Signs Temp Pulse Resp BP BP Pulse Ox 04/08/21 11:56 97.9 F 91 H 18 120/75 99 04/08/21 07:51 98.1 F 96 H 18 107/59 100 04/08/21 04:52 99.5 F 122 H 18 135/83 95 04/08/21 01:27 98.9 F 93 H 18 117/71 100 04/07/21 19:53 98.2 F 98 H 18 115/72 97 04/07/21 15:47 97.9 F 82 18 109/63 97 Intake and Output 04/07/21 04/08/21 04/08/21 22:59 06:59 14:59 Intake Total 200 700 Balance 200 700 Intake: IV 100 100 FLAGYL 500 MG/100 ML 500 100 100 mg In 100 ml @ 100 mls/hr IV Q8HR ON LICENSE OF [facility] Rx#: [id number] Oral 100 Intake, Free Water 600 Other: Total, Intake Amount 100 # Voids Void 1 1 - Exam Lungs: Present: Normal air movement Abdomen: Present: normal appearance, soft, normal bowel sounds. Absent: distention, tenderness, guarding Extremities: Present: normal. Absent: tenderness, edema Incision: Present: dry, intact - Labs Labs: Abnormal lab results 04/08/21 04/08/21 Range/Units 07:15 07:15 WBC 13.6 H (4.5-11.0) K/mm3 RBC 3.52 L (3.65-5.03) M/mm3 Hgb 8.3 L (10.1-14.3) gm/dl Hct 26.1 L (30.3-42.9) % MCV 74 L (79-97) fl MCH 24 L (28-32) pg RDW 24.7 H (13.2-15.2) % Plt Count 544 H (140-440) K/mm3 Lymph % (Auto) 8.0 L (13.4-35.0) % [place] % (Auto) 9.6 H (0.0-7.3) % Lymph # (Auto) 1.1 L (1.2-5.4) K/mm3 [place] # (Auto) 1.3 H (0.0-0.8) K/mm3 Seg Neutrophils % 81.7 H (40.0-70.0) % Seg Neutrophils # 11.1 H (1.8-7.7) K/mm3 Sodium 136 L (137-145) mmol/L Potassium 3.4 L (3.6-5.0) mmol/L Chloride 95.6 L (98-107) mmol/L Carbon Dioxide 32 H (22-30) mmol/L BUN 4 L (7-17) mg/dL Creatinine 0.5 L (0.6-1.2) mg/dL Glucose 102 H (65-100) mg/dL
[2021-04-08] MEDS ORDERED: metroNIDAZOLE 500 MG TAB PO SCH (14:00)
[2021-04-08] MEDS: levoFLOXacin 750 MG TAB PO SCH (14:23)
[2021-04-08] MEDS: POTASSIUM CHLORIDE ER 20 MEQ TAB PO SCH (14:23)
[2021-04-08] MEDS: metroNIDAZOLE 500 MG TAB PO SCH (18:03)
--- NOTE | 2021-04-08 19:20 | Progress Note ---
Assessment and Plan - Patient Problems (1) Nausea Current Visit: Yes Status: Acute Plan to address problem: 1) Improved. Agree with regular diet. 2) CBC and BMP in the am 3) Ambulate in halls 4) Home in 24-48 hours Subjective Date of service: 04/08/21 Patient Reports: Positive: no new complaints, feels better, pain is less, tolerating a regular diet, flatus, no bowel movement, afebrile Objective Vital Signs - 12hr 04/08/21 04/08/21 04/08/21 07:51 11:56 15:50 Temperature 98.1 F 97.9 F 98.5 F Pulse Rate 96 H 91 H 96 H Respiratory 18 18 18 Rate Blood Pressure 107/59 120/75 112/67 O2 Sat by Pulse 100 99 98 Oximetry - Abdomen soft, bowel sounds normal (NT, ND) - Labs 04/08/21 07:15 04/08/21 07:15 Diabetes panel 04/08/21 Range/Units 07:15 Sodium 136 L (137-145) mmol/L Potassium 3.4 L (3.6-5.0) mmol/L Chloride 95.6 L (98-107) mmol/L Carbon Dioxide 32 H (22-30) mmol/L BUN 4 L (7-17) mg/dL Creatinine 0.5 L (0.6-1.2) mg/dL Glucose 102 H (65-100) mg/dL Calcium 8.8 (8.4-10.2) mg/dL Calcium panel 04/08/21 Range/Units 07:15 Calcium 8.8 (8.4-10.2) mg/dL Pituitary panel 04/08/21 Range/Units 07:15 Sodium 136 L (137-145) mmol/L Potassium 3.4 L (3.6-5.0) mmol/L Chloride 95.6 L (98-107) mmol/L Carbon Dioxide 32 H (22-30) mmol/L BUN 4 L (7-17) mg/dL Creatinine 0.5 L (0.6-1.2) mg/dL Glucose 102 H (65-100) mg/dL Calcium 8.8 (8.4-10.2) mg/dL Adrenal panel 04/08/21 Range/Units 07:15 Sodium 136 L (137-145) mmol/L Potassium 3.4 L (3.6-5.0) mmol/L Chloride 95.6 L (98-107) mmol/L Carbon Dioxide 32 H (22-30) mmol/L BUN 4 L (7-17) mg/dL Creatinine 0.5 L (0.6-1.2) mg/dL Glucose 102 H (65-100) mg/dL Calcium 8.8 (8.4-10.2) mg/dL
[2021-04-09] MEDS: metroNIDAZOLE 500 MG TAB PO SCH ×3 (02:21→21:44)
[2021-04-09 09:04] LABS: Basophils % (Auto) 0.3 % (0.0-1.8); Eosinophils % (Auto) 0.3 % (0.0-4.3); Hematocrit 26.1 % (30.3-42.9); Hemoglobin 8.3 gm/dl (10.1-14.3); Lymphocytes # (Auto) 1.6 K/mm3 (1.2-5.4); Mean Corpuscular HGB Conc 32 % (30-34); Mean Corpuscular Volume 75 fl (79-97); Monocytes # (Auto) 1.2 K/mm3 (0.0-0.8); Monocytes % (Auto) 9.9 % (0.0-7.3); Platelet Count 602 K/mm3 (140-440); Red Blood Count 3.49 M/mm3 (3.65-5.03)
[2021-04-09 09:13] LABS: Red Cell Distribution Width 24.5 % (13.2-15.2)
[2021-04-09 09:19] LABS: Blood Urea Nitrogen 6 mg/dL (7-17); Calcium 8.9 mg/dL (8.4-10.2); Hemolysis Index 4
[2021-04-09 09:34] LABS: BUN/Creatinine Ratio 12
[2021-04-09] MEDS ORDERED: MAGNESIUM CITRATE 300 ML ORAL LIQD PO NR (13:14)
--- NOTE | 2021-04-09 13:18 | Progress Note ---
Assessment and Plan - Patient Problems (1) Nausea Current Visit: Yes Status: Acute Plan to address problem: 1) Magnesium citrate for constipation 2) CBC and BMP in the am 3) Switch to Percocet 4) Can probably go home tomorrow 5) Low fat diet 6) F/u in my office in 2 weeks 7) Lap layla in 4 weeks Subjective Date of service: 04/09/21 Patient Reports: Positive: no new complaints, feels better, pain is less, tolerating a regular diet, flatus, no bowel movement Objective Vital Signs - 12hr 04/09/21 04/09/21 04/09/21 04:42 07:53 08:00 Temperature 98 F 98.6 F Pulse Rate 74 87 Pulse Rate [ 82 Apical] Respiratory 16 18 16 Rate Blood Pressure 112/67 Blood Pressure 115/79 [Right] O2 Sat by Pulse 100 Oximetry 04/09/21 12:14 Temperature 98.0 F Pulse Rate 91 H Pulse Rate [ Apical] Respiratory 18 Rate Blood Pressure 120/74 Blood Pressure [Right] O2 Sat by Pulse 99 Oximetry - General physical appearance no distress - Abdomen soft, bowel sounds normal (NT, ND) - Labs 04/09/21 08:13 04/09/21 08:13 Diabetes panel 04/09/21 Range/Units 08:13 Sodium 137 (137-145) mmol/L Potassium 3.5 L (3.6-5.0) mmol/L Chloride 94.9 L (98-107) mmol/L Carbon Dioxide 32 H (22-30) mmol/L BUN 6 L (7-17) mg/dL Creatinine 0.5 L (0.6-1.2) mg/dL Glucose 92 (65-100) mg/dL Calcium 8.9 (8.4-10.2) mg/dL Calcium panel 04/09/21 Range/Units 08:13 Calcium 8.9 (8.4-10.2) mg/dL Pituitary panel 04/09/21 Range/Units 08:13 Sodium 137 (137-145) mmol/L Potassium 3.5 L (3.6-5.0) mmol/L Chloride 94.9 L (98-107) mmol/L Carbon Dioxide 32 H (22-30) mmol/L BUN 6 L (7-17) mg/dL Creatinine 0.5 L (0.6-1.2) mg/dL Glucose 92 (65-100) mg/dL Calcium 8.9 (8.4-10.2) mg/dL Adrenal panel 04/09/21 Range/Units 08:13 Sodium 137 (137-145) mmol/L Potassium 3.5 L (3.6-5.0) mmol/L Chloride 94.9 L (98-107) mmol/L Carbon Dioxide 32 H (22-30) mmol/L BUN 6 L (7-17) mg/dL Creatinine 0.5 L (0.6-1.2) mg/dL Glucose 92 (65-100) mg/dL Calcium 8.9 (8.4-10.2) mg/dL
--- NOTE | 2021-04-09 13:19 | Progress Note ---
Assessment and Plan - Patient Problems (1) History of robot-assisted laparoscopic hysterectomy Current Visit: Yes Status: Acute (2) Intra-abdominal abscess Current Visit: Yes Status: Acute Plan to address problem: Appeared adequately drained patient without any pelvic pain or drainage from her vagina (3) Anemia Current Visit: No Status: Chronic Qualifiers: Iron deficiency anemia type: chronic blood loss (4) Nausea and vomiting Current Visit: Yes Status: Acute Qualifiers: Vomiting Intractability: non-intractable Plan to address problem: Patient states is not food but that she is thrown up but classified as phlegm. (5) Sludge in gallbladder Current Visit: Yes Status: Acute Plan to address problem: Possible etiology of her nausea vomiting. Appreciate Dr. Webb's help will await assessment today for possible outpatient treatment Subjective Date of service: 04/09/21 Patient Reports: Positive: no new complaints, feels better, pain is less, tolerating a regular diet (Patient has not eaten the day due to not liking what was brought on her breakfast tray. Patient awaiting daughter to bring chicken noodles soup from outside.), voiding w/o difficulty, vomiting (Patient says at 1 episode last night), afebrile Objective Vital Signs - 12hr 04/09/21 04/09/21 04/09/21 04:42 07:53 08:00 Temperature 98 F 98.6 F Pulse Rate 74 87 Pulse Rate [ 82 Apical] Respiratory 16 18 16 Rate Blood Pressure 112/67 Blood Pressure 115/79 [Right] O2 Sat by Pulse 100 Oximetry 04/09/21 12:14 Temperature 98.0 F Pulse Rate 91 H Pulse Rate [ Apical] Respiratory 18 Rate Blood Pressure 120/74 Blood Pressure [Right] O2 Sat by Pulse 99 Oximetry - General physical appearance well developed, no distress - Respiratory normal respiratory effort - Abdomen soft, tender (Slightly), surgical scars (Well-healed) - Integumentary no rash, no growths, no abnormal pigmentation - Labs 04/09/21 08:13 04/09/21 08:13 Diabetes panel 04/09/21 Range/Units 08:13 Sodium 137 (137-145) mmol/L Potassium 3.5 L (3.6-5.0) mmol/L Chloride 94.9 L (98-107) mmol/L Carbon Dioxide 32 H (22-30) mmol/L BUN 6 L (7-17) mg/dL Creatinine 0.5 L (0.6-1.2) mg/dL Glucose 92 (65-100) mg/dL Calcium 8.9 (8.4-10.2) mg/dL Calcium panel 04/09/21 Range/Units 08:13 Calcium 8.9 (8.4-10.2) mg/dL Pituitary panel 04/09/21 Range/Units 08:13 Sodium 137 (137-145) mmol/L Potassium 3.5 L (3.6-5.0) mmol/L Chloride 94.9 L (98-107) mmol/L Carbon Dioxide 32 H (22-30) mmol/L BUN 6 L (7-17) mg/dL Creatinine 0.5 L (0.6-1.2) mg/dL Glucose 92 (65-100) mg/dL Calcium 8.9 (8.4-10.2) mg/dL Adrenal panel 04/09/21 Range/Units 08:13 Sodium 137 (137-145) mmol/L Potassium 3.5 L (3.6-5.0) mmol/L Chloride 94.9 L (98-107) mmol/L Carbon Dioxide 32 H (22-30) mmol/L BUN 6 L (7-17) mg/dL Creatinine 0.5 L (0.6-1.2) mg/dL Glucose 92 (65-100) mg/dL Calcium 8.9 (8.4-10.2) mg/dL
[2021-04-09] MEDS ORDERED: oxyCODONE /ACETAMINOPHEN 5-325MG TAB PO PRN (13:30)
[2021-04-09] MEDS: POTASSIUM CHLORIDE ER 20 MEQ TAB PO SCH ×2 (13:41→13:55)
[2021-04-09] MEDS: FAMOTIDINE 20 MG/2 ML INJ IV SCH ×2 (13:41→13:54)
[2021-04-09] MEDS: DOCUSATE SODIUM 100 MG CAP PO SCH ×2 (13:42→21:44)
--- NOTE | 2021-04-09 14:33 | Progress Note ---
Assessment and Plan Cultures: 03/29/2021 blood culture: One of four bottles with Bacillus Drainage cultures 04/02/2021: no growth so far A/P: 46-year-old female who underwent robotic hysterectomy and bilateral salpingectomy on 03/20/2021 admitted with: #Sepsis: likely secondary to left adnexal abscess. Leukocytosis improving. #Left pelvic abscess: underwent IR drainage 04/02/2021. Repeat CT 04/07 with improving inflammatory changes. Small multiloculated collection 2.6 x 2.4 cm remained. #Bacteremia: 1 out of 4 bottles with Bacillus, likely a contaminant, no treatment needed. #N/V: with gallbladder sludge, HIDA scan reviewed. Recs: -continue PO Levaquin 750 mg once a day + Flagyl 500 mg TID x 7 days ID will sign off. Please call with questions. Sarkis Mcdonald MD, FACP [facility] ([facility]) O: [phone] F: [phone] Subjective Date of service: 04/09/21 Principal diagnosis: POD#19 RALTH, POD#6 CT drainage of abscess, N/V Interval history: No fever. Tolerating oral antibiotics today. No nausea, vomiting. She threw up last night. Abdominal pain is better. Objective - Exam Narrative Exam: Physical Exam: Constitutional: Alert, cooperative. No acute distress Head, Ears, Nose: Normocephalic, atraumatic. External ears, nose normal Eyes: Conjunctivae/corneas clear. No icterus. No ptosis. Neck: Supple, no meningeal signs Cardiovascular: S1, S2 normal. Respiratory: Good air entry, clear to auscultation bilaterally GI: small incisions well healed; bowel sounds normal. No peritoneal signs Musculoskeletal: No pedal edema, no cyanosis. Skin: No rash or abscess Hem/Lymphatic: No palpable cervical or supraclavicular nodes. No lymphangitis Psych: Mood ok. Affect normal Neurological: Awake, alert, oriented. No gross abnormality - Constitutional Vitals: Vital Signs Temp Pulse Resp BP Pulse Ox 98.0 F 91 H 18 120/74 99 04/09/21 12:14 04/09/21 12:14 04/09/21 12:14 04/09/21 12:14 04/09/21 12:14 Temperature -Last 24 Hours Temperature 98.0 F Temperature 98.6 F Temperature 98 F Temperature 98.3 F Temperature 97.9 F Temperature 98.5 F - Labs CBC & Chem 7: 04/09/21 08:13 04/09/21 08:13 Labs: Abnormal lab results 04/09/21 04/09/21 Range/Units 08:13 08:13 WBC 12.4 H (4.5-11.0) K/mm3 RBC 3.49 L (3.65-5.03) M/mm3 Hgb 8.3 L (10.1-14.3) gm/dl Hct 26.1 L (30.3-42.9) % MCV 75 L (79-97) fl MCH 24 L (28-32) pg RDW 24.5 H (13.2-15.2) % Plt Count 602 H (140-440) K/mm3 Lymph % (Auto) 13.0 L (13.4-35.0) % [place] % (Auto) 9.9 H (0.0-7.3) % [place] # (Auto) 1.2 H (0.0-0.8) K/mm3 Seg Neutrophils % 76.5 H (40.0-70.0) % Seg Neutrophils # 9.5 H (1.8-7.7) K/mm3 Potassium 3.5 L (3.6-5.0) mmol/L Chloride 94.9 L (98-107) mmol/L Carbon Dioxide 32 H (22-30) mmol/L BUN 6 L (7-17) mg/dL Creatinine 0.5 L (0.6-1.2) mg/dL
[2021-04-09] MEDS: levoFLOXacin 750 MG TAB PO SCH (17:23)
[2021-04-09] MEDS: ONDANSETRON 4 MG/2 ML INJ IV PRN (18:33)
[2021-04-10] MEDS: FAMOTIDINE 20 MG/2 ML INJ IV SCH ×2 (05:44→10:29)
[2021-04-10] MEDS: metroNIDAZOLE 500 MG TAB PO SCH ×2 (05:45→12:06)
[2021-04-10 08:56] LABS: Basophils # (Auto) 0.1 K/mm3 (0.0-0.1); Basophils % (Auto) 0.4 % (0.0-1.8); Eosinophils % (Auto) 0.1 % (0.0-4.3); Hematocrit 25.7 % (30.3-42.9); Hemoglobin 8.6 gm/dl (10.1-14.3); Lymphocytes # (Auto) 1.5 K/mm3 (1.2-5.4); Lymphocytes % (Auto) 10.2 % (13.4-35.0); Mean Corpuscular HGB Conc 33 % (30-34); Mean Corpuscular Volume 73 fl (79-97); Monocytes # (Auto) 1.3 K/mm3 (0.0-0.8); Platelet Count 680 K/mm3 (140-440); Red Blood Count 3.51 M/mm3 (3.65-5.03)
[2021-04-10 09:08] LABS: Red Cell Distribution Width 24.1 % (13.2-15.2)
[2021-04-10 09:15] LABS: Blood Urea Nitrogen 4 mg/dL (7-17); Calcium 9.4 mg/dL (8.4-10.2); Hemolysis Index 0
[2021-04-10 09:26] LABS: BUN/Creatinine Ratio 7
[2021-04-10] MEDS: POTASSIUM CHLORIDE ER 20 MEQ TAB PO SCH (10:15)
[2021-04-10] MEDS: DOCUSATE SODIUM 100 MG CAP PO SCH (10:26)
--- NOTE | 2021-04-10 11:41 | Progress Note ---
Assessment and Plan - Patient Problems (1) Nausea Current Visit: Yes Status: Acute Plan to address problem: 1) ID has signed off. Pt seems to be doing well. I believe she can be safely discharged on Levaquin and Flagyl. Pt can f/u with me in 2 weeks or sooner if her condition worsens (fever, chills, increasing abdominal pain, nausea or vomiting). Will plan on proceeding with jessie rich in 4-6 weeks. Subjective Date of service: 04/10/21 Patient Reports: Positive: no new complaints, feels better, pain is less, tolerating a regular diet, bowel movement Objective Vital Signs - 12hr 04/10/21 04/10/21 04/10/21 01:02 05:27 07:24 Temperature 98.4 F 98.7 F 98.0 F Pulse Rate 91 H 100 H 98 H Respiratory 18 16 18 Rate Blood Pressure 129/74 117/73 112/68 O2 Sat by Pulse 100 100 98 Oximetry - Abdomen soft, bowel sounds normal (NT) - Labs 04/10/21 08:42 04/10/21 08:42 Diabetes panel 04/10/21 Range/Units 08:42 Sodium 134 L (137-145) mmol/L Potassium 3.5 L (3.6-5.0) mmol/L Chloride 90.7 L (98-107) mmol/L Carbon Dioxide 34 H (22-30) mmol/L BUN 4 L (7-17) mg/dL Creatinine 0.6 (0.6-1.2) mg/dL Glucose 97 (65-100) mg/dL Calcium 9.4 (8.4-10.2) mg/dL Calcium panel 04/10/21 Range/Units 08:42 Calcium 9.4 (8.4-10.2) mg/dL Pituitary panel 04/10/21 Range/Units 08:42 Sodium 134 L (137-145) mmol/L Potassium 3.5 L (3.6-5.0) mmol/L Chloride 90.7 L (98-107) mmol/L Carbon Dioxide 34 H (22-30) mmol/L BUN 4 L (7-17) mg/dL Creatinine 0.6 (0.6-1.2) mg/dL Glucose 97 (65-100) mg/dL Calcium 9.4 (8.4-10.2) mg/dL Adrenal panel 04/10/21 Range/Units 08:42 Sodium 134 L (137-145) mmol/L Potassium 3.5 L (3.6-5.0) mmol/L Chloride 90.7 L (98-107) mmol/L Carbon Dioxide 34 H (22-30) mmol/L BUN 4 L (7-17) mg/dL Creatinine 0.6 (0.6-1.2) mg/dL Glucose 97 (65-100) mg/dL Calcium 9.4 (8.4-10.2) mg/dL
--- NOTE | 2021-04-10 14:09 | Discharge Summary ---
Providers - Providers Date of Admission: 03/29/21 21:29 Date of discharge: 04/10/21 Attending physician: KINJAL HAILE 03/30/21 09:15 Consult to Physician [CONS] Urgent Comment: Consulting Provider: RADHA SMITH Physician Instructions: Reason For Exam: pelvic abscess 03/30/21 13:02 Consult to Physician [CONS] Urgent Comment: Consulting Provider: [place] GARCIA Physician Instructions: Reason For Exam: +blood culture, pelvic abscess 04/05/21 10:13 Consult to Physician [CONS] Routine Comment: Consulting Provider: BRAYAN LOVING Physician Instructions: Reason For Exam: gallbladder sludge, n/v Primary care physician: JESSIE MARTINEZ Hospitalization Condition: Good Procedures: CT-guided aspiration of a left adnexal fluid collection. HIDA scan Hospital course: This is a 46-year-old female status post robotic assisted laparoscopic hysterectomy with bilateral salpingectomy on March 20, 2020. She presented to the emergency room on postop day #10 with abdominal pain and nausea and vomiting. CT scan revealed a left adnexal abscess. She was admitted and assistance from ID she was started on IV antibiotics with blood cultures and urine culture were obtained. She underwent CT-guided drainage of the abscess. By hospital day #2 patient was afebrile however she continued to have nausea, vomiting and right lower quadrant pain. She was noted to be hypokalemic and underwent potassium supplementation. With persistent nausea, vomiting right lower quadrant pain on clear liquids the decision was made to proceed with an abdominal ultrasound that revealed gallbladder sludge. Surgery was consulted. HIDA scan was obtained. The decision was made to observe. Slowly patient improved and was able to tolerate clear liquids, then regular diet. She was then advanced to p.o. antibiotics. Patient is now afebrile tolerating p.o. antibiotics. She still complains of some soreness in her abdomen however also tolerating a regular diet. Patient desires discharge home at this time. Disposition: - TO HOME OR SELFCARE Final Discharge Diagnosis (Prints w/discharge instructions): CT-guided aspiration of a left adnexal fluid collection. - Discharge Diagnoses (1) Abdominal pain Status: Acute Qualifiers: Abdominal location: right lower quadrant Qualified Code(s): R10.31 - Right lower quadrant pain (2) Intra-abdominal abscess post-procedure Status: Resolved (3) Febrile illness Status: Resolved (4) History of robot-assisted laparoscopic hysterectomy Status: Acute (5) Nausea Status: Resolved (6) Anemia Status: Chronic Qualifiers: Iron deficiency anemia type: chronic blood loss Comment: Improved (7) Hypokalemia Status: Resolved Core Measure Documentation - Palliative Care Palliative Care/ Comfort Measures: Not Applicable - Core Measures Any of the following diagnoses?: none Exam - Constitutional Vitals: Temp Pulse Resp BP Pulse Ox 98.3 F 92 H 18 116/79 100 04/10/21 12:06 04/10/21 12:06 04/10/21 12:06 04/10/21 12:06 04/10/21 12:06 General appearance: Present: no acute distress - Respiratory Respiratory effort: normal - Extremities Extremities: no ischemia, No edema - Abdominal General gastrointestinal: Present: soft, non-tender, non-distended, normal bowel sounds - Integumentary Integumentary: Present: clear, warm, dry (Incisions clean, dry, intact.) - Psychiatric Psychiatric: appropriate mood/affect, intact judgment & insight, memory intact, cooperative - Neurologic Neurologic: CNII-XII intact Plan Activity: other (No sex, no driving. Ambulate approximately 1 mile on your pro perty daily. Void frequently. Use your incentive spirometer every hour while awake.) Weight Bearing Status: Full Weight Bearing Diet: regular (Eat small meals regularly. Drink approximately 64 ounces of water a day. Avoid spicy, salty, high-fat foods.) Wound: open to air, keep clean and dry Special Instructions: no heavy lifting (Greater than 15 pounds) Follow up with: JESSIE MARTINEZ MD [Primary Care Provider] - 04/13/21 10:00 am BRAYAN LOVING MD [Staff Physician] - 14 Days Prescriptions: Docusate Sodium [Colace CAP] 100 mg PO DAILY #30 capsule metroNIDAZOLE [Flagyl TAB] 500 mg PO Q8H #21 tablet levoFLOXacin [Levaquin TAB] 750 mg PO Q24H #7 tablet oxyCODONE /ACETAMINOPHEN [Percocet 5/325 mg] 1 tab PO Q6H PRN #7 tablet PRN Reason: Pain, Moderate (4-6)
[2021-04-10] MEDS: levoFLOXacin 750 MG TAB PO SCH (14:20)
[2021-04-10 16:25] VITALS: BP 124/81
--- NOTE | 2021-04-20 15:20 | Cat Scan Report ---
PLEASE SEE OPERATIVE REPORT FROM 04-02-21 [facility]TD[facility]
== END 2021-04-10 15:55 | disposition home or self-care (01) | DRG 871 ==
LOC: ED 16:47 → OB 21:29
PROVIDERS: ADMIT Obstetrics & Gynecology; ATTEND Obstetrics & Gynecology
PROC: 0W9J3ZX Drainage of Pelvic Cavity, Percutaneous Approach, Diagnostic (ICD-10-PCS; principal; 2021-04-02)
DX: A41.89 Other specified sepsis (principal); K65.1 Peritoneal abscess; T81.40XA Infection following a procedure, unspecified, initial encounter; K56.7 Ileus, unspecified; I95.9 Hypotension, unspecified; G43.909 Migraine, unspecified, not intractable, without status migrainosus; Z90.710 Acquired absence of both cervix and uterus; Z98.51 Tubal ligation status; Z20.822 Contact with and (suspected) exposure to COVID-19; D50.0 Iron deficiency anemia secondary to blood loss (chronic); E87.6 Hypokalemia; K82.8 Other specified diseases of gallbladder; N73.9 Female pelvic inflammatory disease, unspecified
CPT/HCPCS: 10160; 36415; 71046; 74019; 74177; 76700; 77012; 78226; 80048; 80053; 81001; 82140; 82150; 83690; 83735; 84443; 85007; 85025; 87040; 87086; 87116; 96365; 96375; G0378; A9537; C1769; J0692; J0696; J1170; J1580; J1885; J2250; J2270; J2405; J2543; J2765; J3010; J3480; J7030; Q0169; Q9967; U0003

== ENCOUNTER 2021-05-04 15:30 | Outpatient (CLI) | payer BC ==
[2021-05-04 15:57] LABS: Basophils % (Auto) 0.7 % (0.0-1.8); Eosinophils # (Auto) 0.1 K/mm3 (0.0-0.4); Eosinophils % (Auto) 1.6 % (0.0-4.3); Hematocrit 28.9 % (30.3-42.9); Hemoglobin 9.3 gm/dl (10.1-14.3); Lymphocytes # (Auto) 1.7 K/mm3 (1.2-5.4); Lymphocytes % (Auto) 26.5 % (13.4-35.0); Mean Corpuscular HGB Conc 32 % (30-34); Mean Corpuscular Volume 76 fl (79-97); Monocytes # (Auto) 0.7 K/mm3 (0.0-0.8); Monocytes % (Auto) 11.4 % (0.0-7.3); Platelet Count 370 K/mm3 (140-440); Red Blood Count 3.78 M/mm3 (3.65-5.03)
[2021-05-04 16:15] LABS: Alanine Aminotransferase 10 units/L (7-56); Albumin 4.2 g/dL (3.9-5); Blood Urea Nitrogen 15 mg/dL (7-17); Hemolysis Index 4
[2021-05-04 16:17] LABS: BUN/Creatinine Ratio 25
[2021-05-04 16:19] LABS: Red Cell Distribution Width 21.8 % (13.2-15.2)
== END 2021-05-04 15:31 | disposition home or self-care (01) ==
LOC: LAB 15:30
PROVIDERS: ATTEND Surgery
DX: K81.1 Chronic cholecystitis (principal)
CPT/HCPCS: 36415; 80053; 85025

== ENCOUNTER 2021-05-16 10:17 | Day surgery (SDC) | payer BC ==
[2021-05-16] MEDS ORDERED: HEPARIN 5,000 UNIT/1 ML VIAL SUB-Q NR (10:45)
[2021-05-16] MEDS ORDERED: ceFAZolin/STERILE WATER 2 GM/20 ML SYRINGE IV NR (11:00)
[2021-05-16] MEDS ORDERED: LACTATED RINGERS 1,000 ML IV SCH (11:00)
[2021-05-16] MEDS ORDERED: BACTERIOSTATIC SODIUM CHLORIDE 0.9% 30 ML VIAL INFILTRATI ONE (11:08)
[2021-05-16] MEDS ORDERED: BUPIVACAINE/PF (0.25%) 2.5 MG/ML 30 ML VIAL INFILTRATI ONE ×2 (11:21→13:14)
[2021-05-16] MEDS ORDERED: ROCURONIUM 50 MG/5 ML INJ IV ONE (11:34)
[2021-05-16] MEDS ORDERED: HYDROmorphone 1 MG/1 ML INJ ONE (11:34)
[2021-05-16] MEDS ORDERED: LIDOCAINE MPF (2%) 20 MG/1 ML VIAL 5 ML ONE (11:34)
[2021-05-16] MEDS ORDERED: propofoL 200 MG/20 ML VIAL IV ONE (11:34)
[2021-05-16] MEDS ORDERED: ONDANSETRON 4 MG/2 ML INJ IV PRN (11:37)
[2021-05-16] MEDS ORDERED: MAGNESIUM OXIDE 400 MG TAB PO NR (11:37)
[2021-05-16] MEDS ORDERED: ACETAMINOPHEN 500 MG TAB PO NR (11:37)
[2021-05-16] MEDS ORDERED: HYDROmorphone 1 MG/1 ML INJ IV PRN (11:37)
--- NOTE | 2021-05-16 11:42 | Anesthesia Day of Surgery ---
Anesthesia Day of Surgery - Day of Surgery Patient Examined: Yes Patient H&P Reviewed: Yes Patient is NPO: Yes
--- NOTE | 2021-05-16 11:43 | Anesthesia Consultation ---
Anesthesia Consult and Med Hx Date of service: 05/16/21 - Airway Anesthetic Teeth Evaluation: Good ROM Head & Neck: Adequate Mental/Hyoid Distance: Adequate Mallampati Class: Class II Intubation Access Assessment: Good - Pre-Operative Health Status ASA Pre-Surgery Classification: ASA2 Proposed Anesthetic Plan: General - Pulmonary Hx Smoking: No Hx Asthma: No Hx Respiratory Symptoms: No COPD: No Hx Pneumonia: No - Cardiovascular System Hx Hypertension: No - Central Nervous System CVA: No Hx Psychiatric Problems: No - Endocrine Hx Renal Disease: No Hx End Stage Renal Disease: No Hx Liver Disease: No Hx Insulin Dependent Diabetes: No Hx Non-Insulin Dependent Diabetes: No Hx Thyroid Disease: No - Hematic Hx Anemia: Yes (IRON SUPPLEMENTS) Hx Sickle Cell Disease: No - Other Systems Hx Alcohol Use: Yes (OCCASIONALLY) Hx Substance Use: No Hx Cancer: No Hx Obesity: No - Additional Comments Anesthesia Medical History Comments: Was here [id number]
[2021-05-16] MEDS ORDERED: MIDAZOLAM 2 MG/2 ML INJ IV NR (12:00)
[2021-05-16] MEDS ORDERED: CELECOXIB 200 MG CAP PO NR (12:00)
[2021-05-16] MEDS ORDERED: .SODIUM CHLORIDE 0.9% IRRIG SOLN 3000 ML IR ONE (13:13)
[2021-05-16] MEDS ORDERED: GLYCOPYRROLATE 0.4 MG/2 ML INJ ONE (13:22)
[2021-05-16] MEDS ORDERED: NEOSTIGMINE 10MG/10 ML INJ MDV ONE (13:22)
[2021-05-16] MEDS ORDERED: KETOROLAC 30 MG/1 ML INJ ONE (13:25)
[2021-05-16] MEDS ORDERED: ONDANSETRON 4 MG/2 ML INJ ONE ×2 (13:25→16:00)
[2021-05-16] MEDS: HYDROmorphone 1 MG/1 ML INJ IV PRN ×3 (14:02→14:55)
--- NOTE | 2021-05-16 14:03 | Procedure Note ---
Date of procedure: 05/16/21 Pre-op diagnosis: Chronic cholecystitis Post-op diagnosis: same Procedure: Laparoscopic cholecystectomy Description of procedure: Pt was placed supine on the OR table. GETA was administered. Abdomen was prepped and draped. Proposed trocar sites were in filtrated with 10 ml of 0.5% Marcaine with epinephrine. A small, infraumbilical incision was made and the peritoneal cavity entered. A Yuridia port was inserted into the peritoneal cavity and pneumoperitoneum established. 10 mm subxiphoid, 5 mm RUQ and 5 mm right lateral abdominal ports were inserted into the peritoneal cavity under direct vision. Pt was positioned head and right side up. Fundus of the gallbladder was grasped and was retracted cephalad and laterally. Neck of the gallbladder, cystic artery and duct were skeletonized and the critical view of safety obtained. Cystic artery and duct were doubly clipped and divided. Gallbladder was dissected off of it's hepatic fossa with cautery. Gallbladder was placed in an endobag and the endobag removed via the infraumbilical fascial defect. Upper abdominal ports were removed with no bleeding identified from the port entry sites under low pressure. Pneumoperitoneum was released. The infraumbilical fascial defect was closed wi th 2 interrupted sutures of 0-Vicryl. Skin incisions were closed with running subcuticular sutures of 4-0 Monocryl. Skin glue was applied to all 4 incisions. Pt tolerated the procedure well and was taken to PACU in stable condition. Anesthesia: GETA Surgeon: BRAYAN LOVING Estimated blood loss: minimal Pathology: list (Gallbladder) Specimen disposition: to lab Condition: stable Disposition: PACU
[2021-05-16] MEDS ORDERED: diphenhydrAMINE 50 MG/ML VIAL ONE (15:16)
[2021-05-16] MEDS ORDERED: diphenhydrAMINE 50 MG/ML VIAL IV ONE (16:00)
[2021-05-16 16:39] VITALS: BP 109/67
--- NOTE | 2021-05-16 17:01 | Post Anesthesia Evaluation ---
- Post Anesthesia Evaluation Patient Participated: Yes Airway Patent: Yes Stable Respiratory Function: Yes Nausea/Vomiting: Yes Temp > 96.8F: Yes Pain Manageable: Yes Adequeate Hydration: Yes Anesthesia Complications: No Block Receding Appropriately: Not Applicable Patient on Ventilator: No
== END 2021-05-16 10:18 | disposition home or self-care (01) ==
LOC: OR 10:17
PROVIDERS: ATTEND Surgery
DX: K81.1 Chronic cholecystitis (principal); Z79.899 Other long term (current) drug therapy; Z98.51 Tubal ligation status; Z90.710 Acquired absence of both cervix and uterus; Z98.890 Other specified postprocedural states
CPT/HCPCS: 47562; 88304; A4217; J0690; J1170; J1200; J1644; J1885; J2250; J2405; J2704; J2710; J7120

== ENCOUNTER 2021-07-31 11:41 | Outpatient (CLI) | payer BC ==
[2021-07-31 12:10] LABS: Blood Urea Nitrogen 16 mg/dL (7-17)
--- NOTE | 2021-07-31 14:29 | Cat Scan Report ---
CT ABDOMEN WITH CONTRAST HISTORY: ABDOMINAL MASS, PERIUMBILICAL 100 ML OMNI 300 . COMPARISON: 04/07/2021 TECHNIQUE: CT images of the abdomen were obtained following administration of intravenous contrast. S agittal and coronal reformatted images. All CT scans at this location are performed using CT dose red uction for ALARA by means of automated exposure control. CONTRAST: Omnipaque 300 100 ml of intravenous contrast administered. FINDINGS: Abdomen: The patient has a belly button piercing which generates mild artifact. There is no obvious mass, fluid collection or hernia in the periumbilical region. The gallbladder has been surgically removed. No biliary dilatation. The liver, pancreas, spleen, kidn eys, adrenal glands, vascular structures and visualized bowel loops are unremarkable. There is no alba dence for ascites, adenopathy or free air. Lungs/bones: Lung bases are clear. Small pleural effusions have resolved since the previous exam. He art size is normal. The bony structures are within normal limits. IMPRESSION: Unremarkable examination. Signer Name: Adriel Winter Jr, MD Signed: 07/31/2021 2:25 PM Workstation Name: [id number]
== END 2021-07-31 11:42 | disposition home or self-care (01) ==
LOC: CT 11:41
PROVIDERS: ATTEND Obstetrics & Gynecology
DX: R19.05 Periumbilic swelling, mass or lump (principal); Z90.49 Acquired absence of other specified parts of digestive tract
CPT/HCPCS: 36415; 74160; 82565; 84520; Q9967

== ENCOUNTER 2022-01-25 08:59 | Outpatient (CLI) | payer BC ==
--- NOTE | 2022-01-25 13:00 | Ultrasound Report ---
BILATERAL DIGITAL DIAGNOSTIC MAMMOGRAM WITH CAD , 01/25/2022 BILATERAL COMPLETE BREAST ULTRASOUND CLINICAL INFORMATION / INDICATION: 47-year-old patient complaining of bilateral breast pain. N64.4 BR EAST PAIN,BILATERAL TECHNIQUE: Digital bilateral mammographic imaging was performed. Complete ultrasound of all four (4) quadrants was performed. This examination was interpreted with the benefit of Computer-Aided Detectio n (CAD) analysis. COMPARISON: Prior mammograms including 01/23/2021, 07/06/2018, and prior right breast ultrasound 03/07/20 21 FINDINGS: Breast Density: The breasts are heterogeneously dense, which may obscure small masses. MAMMOGRAPHIC FINDINGS: No dominant mass, suspicious calcifications, or architectural distortion in th e left breast. Previously noted small focal asymmetry in the right breast at 9:00 middle depth persis ts unchanged since 2020 mammogram. Overall, no interval change from the 2020 mammogram. ULTRASOUND FINDINGS: Complete sonographic evaluation of all 4 quadrants and retroareolar region was p erformed. Left breast: There is a 3 mm simple cyst noted at 1:00, 2 cm from nipple. The remainder of the left b reast is unremarkable. There is no sonographic correlate to account for the area of pain. No abnormal lymph nodes are present in the left axilla. Right breast: In the 8:00 location, 3 cm from nipple, there is a small hypoechoic mass measuring 4 x 2 mm which is slightly smaller compared to the prior ultrasound of 03/07/2021. At that time the mass m easured 7 x 4 mm. Additionally, there is a small hypoechoic mass at 9:00, 2 cm from nipple, measuring 5 x 4 mm. This is also slightly smaller in size compared to the prior ultrasound in which the mass m easured 7 x 3 mm. Previously noted 5 mm complicated cyst in the retroareolar region is no longer pres ent. IMPRESSION: No mammographic or sonographic evidence of malignancy. Clinical correlation is recommende d for bilateral breast pain. Previously seen benign-appearing masses in the right lateral breast on prior ultrasound of 03/07/2021 are again noted but have decreased in size slightly most likely related to resolving fibrocystic saleem ge. Follow up recommendation: Routine yearly BI-RADS Category 2: BENIGN. A "normal" or negative report should not discourage follow up or biopsy of a clinically significant f inding. A written summary of these findings will be mailed to the patient. The patient will be entered into a mammography reporting system which will generate a reminder letter for the patient's next appointmen t at the appropriate interval. According to the [employer], yearly mammograms are recommended starting at age 40 and continuing as long as a woman is in good health. Breast MRI is recommended for women with an bisi roximately 20-25% or greater lifetime risk of breast cancer, including women with a strong family his tory of breast or ovarian cancer and women who have been treated for Hodgkin's disease. Signer Name: Destiny Zuniga MD Signed: 01/25/2022 12:56 PM Workstation Name: [id number]
== END 2022-01-25 09:00 | disposition home or self-care (01) ==
LOC: MAMMO 08:59
PROVIDERS: ATTEND Obstetrics & Gynecology
DX: N63.11 Unspecified lump in the right breast, upper outer quadrant (principal); N60.02 Solitary cyst of left breast; N60.01 Solitary cyst of right breast; N64.4 Mastodynia; R92.2 Inconclusive mammogram
CPT/HCPCS: 77066